=== PATIENT | male | born 1965 | race Caucasian/White ===

== ENCOUNTER 2017-07-23 20:32 | Emergency (ER) | payer MEDICARE, MEDICAID ==
[~2017-07-23 20:32] MED LIST: ROCURONIUM BROMIDE INJ 50 MG/5 ML VIAL IV ONE
[2017-07-23] MEDS ORDERED: ACETAMINOPHEN 650 MG SUPP.RECT PR ONE ×2 (20:50→20:52)
[2017-07-23] MEDS ORDERED: VANCOMYCIN HCL INJ 1000 MG VIAL ONE (20:53)
[2017-07-23] MEDS ORDERED: ACETAMINOPHEN 325 MG SUPP.RECT PR ONE (20:53)
[2017-07-23] MEDS ORDERED: CEFTRIAXONE 2 GM/D5W RTU 2 GM/50 ML RTUPB IV ONE ×2 (20:54→21:11)
[2017-07-23] MEDS ORDERED: LIDOCAINE 1% INJ-PF (10 MG/ML) 30 ML SDV ONE (21:00)
[2017-07-23 21:01] LABS: ARTERIAL BLOOD BASE EXCESS -10.8 mmol/L; ARTERIAL BLOOD O2 SATURATION 98.1 % (94-98)
[2017-07-23] MEDS ORDERED: DEXTROSE 5%-LACTATED RINGERS 1,000 ML IV ONE (21:10)
[2017-07-23] MEDS ORDERED: VANCOMYCIN HCL INJ 1000 MG VIAL IV ONE (21:11)
[2017-07-23] MEDS ORDERED: CLINDAMYCIN 600 MG/D5W RTU 600 MG/50 ML RTUPB IV ONE (21:12)
[2017-07-23] MEDS: RINGERS SOLUTION,LACTATED 1,000 ML IV PRN ×2 (21:25→21:45)
[2017-07-23 21:41] LABS: PROTHROMBIN TIME 16.1 SEC (11.4-15.4)
[2017-07-23 21:46] LABS: ALANINE AMINOTRANSFERASE 132 U/L (21-72); ALBUMIN 3.7 g/dL (3.5-5.0); ALCOHOL < 10 mg/dL (NONE DETECTED); ALKALINE PHOSPHATASE 65 U/L (38-126); ASPARTATE AMINO TRANSFERASE 668 U/L (17-59); BILIRUBIN,TOTAL 1.2 mg/dL (0.2-1.3); BLOOD UREA NITROGEN 34 mg/dL (7-20); CALCIUM 8.3 mg/dL (8.4-10.2); CARBON DIOXIDE 13 mmol/L (22-30); CHLORIDE 102 mmol/L (98-107); GLUCOSE 133 mg/dL (75-110); TOTAL PROTEIN 6.5 g/dL (6.3-8.2)
[2017-07-23 21:52] LABS: SODIUM 136.1 mmol/L (137-145)
[2017-07-23 21:54] LABS: ABSOLUTE LYMPHOCYTES (AUTO) 0.9 10^3/uL (0.5-4.7); ABSOLUTE MONOCYTES (AUTO) 1.3 10^3/uL (0.1-1.4); ANION GAP 21 (5-19); BASOPHILS % (AUTO) 0.2 % (0-2); EOSINOPHILS % (AUTO) 0.2 % (0-6); HEMATOCRIT 37.9 % (37.9-51.0); HEMOGLOBIN 12.7 g/dL (13.5-17.0); HGB HCT DIFFERENCE 0.2; LYMPHOCYTES % (AUTO) 5.2 % (13-45); MEAN CORPUSCULAR HEMOGLOBIN 26.7 pg (27.0-33.4); MEAN CORPUSCULAR HGB CONC 33.5 g/dL (32.0-36.0); MEAN CORPUSCULAR VOLUME 80 fl (80-97); MONOCYTES % (AUTO) 7.7 % (3-13); RED BLOOD COUNT 4.75 10^6/uL (4.35-5.55); RED CELL DISTRIBUTION WIDTH 15.2 % (11.5-14.0); SEGMENTED NEUTROPHILS % (AUTO) 86.7 % (42-78); WHITE BLOOD COUNT 17.3 10^3/uL (4.0-10.5)
--- NOTE | 2017-07-23 21:56 | RADIOLOGY REPORT (SQ) ---
EXAM DESCRIPTION: CHEST SINGLE VIEW COMPLETED DATE/TIME: 07/23/2017 9:37 pm REASON FOR STUDY: sepsis COMPARISON: None. EXAM PARAMETERS: NUMBER OF VIEWS: One view. TECHNIQUE: Single frontal radiographic view of the chest acquired. RADIATION DOSE: NA LIMITATIONS: None. FINDINGS: LUNGS AND PLEURA: No consolidation, masses or pneumothorax. Probable small bilateral pleu ral effusion. MEDIASTINUM AND HILAR STRUCTURES: Stable. HEART AND VASCULAR STRUCTURES: Stable. BONES: No acute findings. HARDWARE: None in the chest. OTHER: No other significant finding. IMPRESSION: Probable small bilateral pleural effusion. TECHNICAL DOCUMENTATION: JOB ID: [id number]
[2017-07-23] MEDS ORDERED: NOREPINEPHRINE BITARTRATE INJ/PF 4 MG/4 ML SDV IV ONE (22:33)
[2017-07-23 22:47] LABS: CREATINE KINASE MB 90.8 ng/mL (<4.55)
--- NOTE | 2017-07-23 22:47 | RADIOLOGY REPORT (SQ) ---
EXAM DESCRIPTION: CT HEAD WITHOUT COMPLETED DATE/TIME: 07/23/2017 10:31 pm REASON FOR STUDY: altered mental status COMPARISON: 01/13/2014 TECHNIQUE: Axial images acquired through the brain without intravenous contrast. Images reviewed wi th bone, brain and subdural windows. Images stored on PACS. All CT scanners at this facility use dose modulation, iterative reconstruction, and/or weight based d osing when appropriate to reduce radiation dose to as low as reasonably achievable (ALARA). [facility]: Dose Right [facility]: CareDose [facility]: Dose Right [facility]: Teradose 4D [facility]: Smart [employer] RADIATION DOSE: Up-to-date CT equipment and radiation dose reduction techniques were employed. CTDIv ol: 64.6 mGy. DLP: 1163 mGy-cm. mGy. LIMITATIONS: None. FINDINGS: VENTRICLES: Normal size and contour. CEREBRUM: No masses. No hemorrhage. No midline shift. No evidence for acute infarction. Normal gra y/white matter differentiation. No areas of low density in the white matter. CEREBELLUM: No masses. No hemorrhage. No alteration of density. No evidence for acute infarction. EXTRAAXIAL SPACES: No fluid collections. No masses. ORBITS AND GLOBE: No intra- or extraconal masses. Normal contour of globe without masses. CALVARIUM: No fracture. PARANASAL SINUSES: No fluid or mucosal thickening. SOFT TISSUES: No mass or hematoma. OTHER: No other significant finding. IMPRESSION: No acute intracranial findings. EVIDENCE OF ACUTE STROKE: NO. COMMENT: Quality ID # 436: Final reports with documentation of one or more dose reduction techniques (e.g., Automated exposure control, adjustment of the mA and/or kV according to patient size, use of iterative reconstruction technique) TECHNICAL DOCUMENTATION: JOB ID: [id number] [employer]- All Rights Reserved
--- NOTE | 2017-07-23 22:51 | RADIOLOGY REPORT (SQ) ---
EXAM DESCRIPTION: CT ABD/PELVIS NO ORAL OR IV COMPLETED DATE/TIME: 07/23/2017 10:31 pm REASON FOR STUDY: fever, sepsis suspected, acute renal failure COMPARISON: None. TECHNIQUE: CT scan of the abdomen and pelvis performed without intravenous or oral contrast. Images reviewed with lung, soft tissue, and bone windows. Reconstructed coronal and sagittal MPR images revi ewed. All images stored on PACS. All CT scanners at this facility use dose modulation, iterative reconstruction, and/or weight based d osing when appropriate to reduce radiation dose to as low as reasonably achievable (ALARA). [facility]: Dose Right [facility]: CareDose [facility]: Dose Right [facility]: Teradose 4D [facility]: [employer] RADIATION DOSE: Up-to-date CT equipment and radiation dose reduction techniques were employed. CTDIv ol: 20.2 mGy. DLP: 1191 mGy-cm.mGy. LIMITATIONS: None. FINDINGS: LOWER CHEST: Mild basilar subsegmental atelectasis. NON-CONTRASTED LIVER, SPLEEN, ADRENALS: Evaluation limited by lack of IV contrast. No identified sign ificant masses. PANCREAS: No masses. No peripancreatic inflammatory changes. GALLBLADDER: No identified stones by CT criteria. No inflammatory changes to suggest cholecystitis. RIGHT KIDNEY AND URETER: No suspicious masses. Assessment limited by lack of IV contrast. No signif icant calcifications. No hydronephrosis or hydroureter. LEFT KIDNEY AND URETER: No suspicious masses. Assessment limited by lack of IV contrast. No signifi cant calcifications. No hydronephrosis or hydroureter. AORTA AND RETROPERITONEUM: No aneurysm. No retroperitoneal masses or adenopathy. BOWEL AND PERITONEAL CAVITY: No obvious masses or inflammatory changes. No free fluid. APPENDIX: Normal. PELVIS, BLADDER, AND ABDOMINAL WALL:No abnormal masses. No free fluid. Bladder contains a Salgado asael ter. BONES: No significant findings. OTHER: No other significant finding. IMPRESSION: NO ACUTE PROCESS IN THE ABDOMEN OR PELVIS. Mild basilar subsegmental atelectasis. COMMENT: Quality ID # 436: Final reports with documentation of one or more dose reduction techniques (e.g., Automated exposure control, adjustment of the mA and/or kV according to patient size, use of iterative reconstruction technique) TECHNICAL DOCUMENTATION: JOB ID: [id number]- All Rights Reserved
[2017-07-23 23:09] LABS: TROPONIN I 0.059 ng/mL
[2017-07-23] MEDS ORDERED: KETAMINE HCL INJ 500 MG/10 ML VIAL ONE (23:14)
--- NOTE | 2017-07-23 23:43 | ER Document Report ---
ED General - General Chief Complaint: Altered Mental Status Stated Complaint: ALTERED MENTAL STATUS Time Seen by Provider: 07/23/17 21:08 Mode of Arrival: Medic Information source: Patient, Emergency Med Personnel Notes: This is a 51-year-old man with a history of chronic back pain, hypertension, anxiety and depression. The patient reportedly lives alone. His neighbors apparently checked in on him and found him unresponsive on the couch. EMS was called to the house and the patient was brought into the emergency room. Medications: Doxepin 6 mg daily Quetiapine 400 mg daily alprazolam aspirin metoprolol 50 mg BID Itraconazole Movantik IsAtorvastatin 20 mg daily PatientOxycodone pronounced the woman Amlodipine 5 mg daily Nexium Morphine Lisinopril 20 mg daily TRAVEL OUTSIDE OF THE [place] IN LAST 30 DAYS: No - HPI Onset: Other - Patient not seen for the past few days Associated symptoms: Chills, Fever Exacerbated by: Denies Relieved by: Denies Similar symptoms previously: No Recently seen / treated by doctor: No - Related Data Allergies/Adverse Reactions: No Known Allergies Allergy (Verified 07/23/17 23:45) Past Medical History - General Information source: Emergency Med Personnel, [facility] Records - Social History Smoking Status: Current Every Day Smoker Cigarette use (# per day): Yes - Unknown Chew tobacco use (# tins/day): No Smoking Education Provided: No Frequency of alcohol use: None Drug Abuse: None Lives with: Alone Family History: None Patient has suicidal ideation: No Patient has homicidal ideation: No - Past Medical History Cardiac Medical History: Reports: Hx Hypertension Pulmonary Medical History: Reports: None EENT Medical History: Reports: None Neurological Medical History: Reports: None Endocrine Medical History: Reports: None Renal/ Medical History: Reports: None Malignancy Medical History: Reports None GI Medical History: Reports: None Musculoskeltal Medical History: Reports Other - Chronic low back pain Skin Medical History: Reports None Psychiatric Medical History: Reports: Hx Bipolar Disorder, Hx Schizophrenia Traumatic Medical History: Reports: None Infectious Medical History: Reports: None Past Surgical History: Reports: Hx Orthopedic Surgery - Immunizations Hx Diphtheria, Pertussis, Tetanus Vaccination: Yes Review of Systems - Review of Systems Constitutional: Chills, Fever EENT: No symptoms reported Cardiovascular: No symptoms reported Respiratory: No symptoms reported Gastrointestinal: Diarrhea Genitourinary: No symptoms reported Male Genitourinary: No symptoms reported Musculoskeletal: No symptoms reported Skin: See HPI Hematologic/Lymphatic: No symptoms reported Neurological/Psychological: See HPI Physical Exam - Vital signs Vitals: Resp Pulse Ox 34 H 99 07/23/17 20:36 07/23/17 20:36 Notes: Physical exam: GENERAL: This is a 51-year-old man who is lethargic but does respond to his name and can answer simple questions. He appears very weak and dehydrated. His temperature is 103 rectally. He is tachycardic with a heart rate of 120. He is tachypneic with a respiratory rate of 40. HEAD: Atraumatic, normocephalic. EYES: Pupils equal round and reactive to light, extraocular movements intact, sclera anicteric, conjunctiva are normal. ENT: TMs normal, nares patent, oropharynx clear without exudates. Moist mucous membranes. NECK: Normal range of motion, supple without obvious mass or JVD. The patient denies headache at this time. He does have a fungal rash on the right side of the neck extending over the right clavicle. LUNGS: Tachypnea. Breath sounds clear to auscultation bilaterally and equal. No wheezes rales or rhonchi. HEART: Tachycardia without murmurs, rubs or gallops. ABDOMEN: Soft, normoactive bowel sounds. No tenderness to palpation. No guarding, no rebound. No masses appreciated. EXTREMITIES: Normal range of motion, no pitting or edema. The patient has a pressure sore over the extensor surface of the right elbow. He has an area of purpura and ecchymoses over the right thigh laterally which is approximately 8 cm x 10 cm. The lesion looks purplish in the center with red extending around it. There is no fluctuance, induration. Rectal exam: Liquid stool sent for study. Patient's temperature is 103. NEUROLOGICAL: He is lethargic, he denies headache, he can answer simple questions, he appears very weak, no obvious focal lesions noted. SKIN: Warm, Dry, lesions noted under extremity exams. Course - Re-evaluation Re-evalutation: 07/23/17 23:43 Note: This is a 51-year-old man with a history of hypertension, chronic pain and an unspecified psychiatric illness who is brought in for an altered mental status and found to be febrile and septic. His white count is 17,000. He does have a lesion over the right thigh which is purpuric in nature. I did have the surgeon come down and open the lesion and inspected for any necrotic tissue: There was none. The patient was given IV vancomycin, IV ceftriaxone, IV clindamycin. Labs reveal that he is in acute rhabdomyolysis and has acute renal failure. Due to the fact we do not have renal coverage, I am looking to transfer. 07/24/17 01:40 Patient's problem list: 1. Sepsis: Fever 103, white blood count 17,000. Lactic acid 1.5. Patient received IV Ringer's lactate, now on a norepinephrine drip at 14 mg/min. IV antibiotics given as above. Current blood pressure is 97/64. Patient has 3 peripheral lines and a triple-lumen in the right femoral region with the red port and the white port being functional (the blue port will not flush). On skin exam, the patient did have pressure ulcer to the right elbow. He did have a lesion to the lateral aspect of the right thigh which was approximately 8 x 10 cm and erythematous. It is not clear if this is the source of infection. The wound was opened up in the center by the surgeon and there was no necrotic tissue identified. Chest x-ray does show possible early infiltrates. CT of the head and abdomen showed no acute pathology. I did try to do a spinal tap at the bedside but was unsuccessful (patient does have tight spaces with a fair amount of arthritis in the lumbar region). 2. Acute renal failure secondary to rhabdomyolysis: Salgado has been placed. Patient not yet making much urine. After 3 L of Ringer's lactate, patient is now getting some bicarb. 3. Respiratory status: Patient is on 50% Venturi mask. At this time his oxygen saturation is 97%. His respiratory rate is between 12 and 15 (which has improved). We will continue to watch closely. 4. Current drips: Ringer's lactate, bicarb drip, norepinephrine at 14 mics per minute. 07/24/17 02:26 Update: Patient on his fifth liter of IV fluids. He is starting to make urine. Blood pressure is 100/60. 07/24/17 04:05 Note: I was called to the room because the patient was developing some agitation and swelling around the right side of his neck. The patient did have what looked like a fungal infection in the crease of the neck over the clavicle (this is the reason why I initially decided to use the femoral access for central line as opposed to the internal jugular). On reassessment of the patient, the patient clearly has increased swelling and induration in the submandibular region predominantly on the right side of the neck. There does not appear to be any fluctuance. The patient's neck tissues were soft earlier. In any event, the decision was made to intubate the patient because of the possibility of airway compromise. The patient was given IV ketamine 100 mg for induction and then rocuronium. Patient was intubated with the use of glidoscope. Will obtain neck CT. - Vital Signs Vital signs: Temp Pulse Resp BP Pulse Ox 97.5 F 14 93/56 L 97 07/24/17 04:00 07/24/17 04:03 07/24/17 04:03 07/24/17 04:03 - Laboratory Result Diagrams: 07/23/17 20:38 07/23/17 20:38 Laboratory results interpreted by me: 07/23/17 07/23/17 07/23/17 20:38 20:38 20:38 WBC 17.3 H Hgb 12.7 L MCH 26.7 L RDW 15.2 H Seg Neutrophils % 86.7 H Lymphocytes % 5.2 L Absolute Neutrophils 15.0 H PT 16.1 H Carbonic Acid ABG pH ABG pCO2 ABG pO2 ABG HCO3 ABG Total CO2 ABG O2 Saturation Sodium 136.1 L Carbon Dioxide 13 L Anion Gap 21 H BUN 34 H Creatinine 8.90 H Est GFR ( Amer) 8 L Est GFR (Non-Af Amer) 6 L Glucose 133 H Calcium 8.3 L Direct Bilirubin 1.0 H AST 668 H ALT 132 H Creatine Kinase CK-MB (CK-2) Urine Protein Urine Glucose (UA) Urine Ketones Urine Blood Ur Leukocyte Esterase Salicylates < 1.0 L Acetaminophen < 10 L 07/23/17 07/23/17 07/23/17 20:38 20:38 20:47 WBC Hgb MCH RDW Seg Neutrophils % Lymphocytes % Absolute Neutrophils PT Carbonic Acid 0.78 L ABG pH 7.33 L ABG pCO2 25.8 L ABG pO2 115.7 H ABG HCO3 13.4 L ABG Total CO2 14.2 L ABG O2 Saturation 98.1 H Sodium Carbon Dioxide Anion Gap BUN Creatinine Est GFR ( Amer) Est GFR (Non-Af Amer) Glucose Calcium Direct Bilirubin AST ALT Creatine Kinase 85631 H CK-MB (CK-2) 90.80 H Urine Protein Urine Glucose (UA) Urine Ketones Urine Blood Ur Leukocyte Esterase Salicylates Acetaminophen 07/23/17 23:55 WBC Hgb MCH RDW Seg Neutrophils % Lymphocytes % Absolute Neutrophils PT Carbonic Acid ABG pH ABG pCO2 ABG pO2 ABG HCO3 ABG Total CO2 ABG O2 Saturation Sodium Carbon Dioxide Anion Gap BUN Creatinine Est GFR ( Amer) Est GFR (Non-Af Amer) Glucose Calcium Direct Bilirubin AST ALT Creatine Kinase CK-MB (CK-2) Urine Protein 100 H Urine Glucose (UA) 50 H Urine Ketones TRACE H Urine Blood LARGE H Ur Leukocyte Esterase TRACE H Salicylates Acetaminophen - Diagnostic Test Radiology reviewed: Image reviewed, Reports reviewed - CT of the head shows no acute intra-cranial process. CT of the abdomen shows no acute intra-abdominal process. - EKG Interpretation by Vt Rate: Tachycardia - EKG shows sinus tachycardia with a ventricular rate of 115, no acute ST-T wave changes Procedures - Central Line Right Femoral Time completed: 23:00 Consent obtained: No - Procedure done emergently Central line pre-insertion: Chloraprep applied Central line lumen type: Triple Anesthetic type: 1% Lidocaine mL's of anesthesia: 5 Ultrasound guided: Yes CM at insertion site: 21 Line secured with sutures: Yes Central line post-insertion: Biopatch applied, Sutured, Sterile dressing applied , Other - Blood returned from the red and the white lumen. Was unable to return blood from the blue lumen (this was taped off). Number of attempts: 1 Complications: No - Intubation Orotracheal Time of Intubation: 03:30 Airway evaluation: Large tongue, Neck immobility, Obese, Poss. upper airway obst. Mallampati Classification: Class 1 Medications: Ketamine Intubation method: Orotracheal Equipment used: Glidescope ETT size: 7.5 ETT secured at: Lips ETT secured at (cm): 23 Breath Sounds after Intubation: Equal, Other - The patient was initially at 25 cm and appeared to be just above the right mainstem bronchus. The tube was moved back to centimeters and appears in good position. End tidal CO2 confirmed: Yes Post Intubation Xray: Yes Intubation Complications: No complications - Lumbar Puncture Lumbar puncture Time completed: 23:30 Consent obtained: No Lumbar puncture pre-procedure: Chloraprep applied Patient position: Lying Needle size: 22 Anesthetic type: 1% Lidocaine mL's of anesthetic: 5 Notes: 07/24/17 01:50 Unable to obtain due to tight spaces with arthritis in the lower lumbar area. Procedure aborted after several attempts. Critical Care Note - Critical Care Note Total time excluding time spent on procedures (mins): 180 Discharge - Discharge Clinical Impression: Septic shock, Acute renal failure, Rhabdomyolysis, Right neck swelling Condition: Critical Disposition: [facility] Referrals: GRAHAM GARCIA MD [Primary Care Provider] - Follow up as needed
[2017-07-23] MEDS ORDERED: KETAMINE HCL INJ 500 MG/10 ML VIAL IV ONE (23:52)
[2017-07-24] MEDS ORDERED: DEXTROSE 5%-WATER 1000 ML 1,000 ML IV ONE (00:13)
[2017-07-24] MEDS ORDERED: SODIUM BICARBONATE 8.4% INJ 50 MEQ/50 ML DISP.SYRIN ONE (00:19)
[2017-07-24] MEDS: DEXTROSE 5%-WATER 1000 ML 1,000 ML with SODIUM BICARBONATE 150 MEQ IV PRN ×4 (00:30→00:47)
[2017-07-24 00:33] LABS: AMORPHOUS SEDIMENT,URINE TRACE /HPF; APPEARANCE,URINE CLOUDY; BILIRUBIN,URINE NEGATIVE (NEGATIVE); GLUCOSE, URINE 50 mg/dL (NEGATIVE); KETONES,URINE TRACE mg/dL (NEGATIVE); LEUKOCYTE ESTERASE,URINE TRACE (NEGATIVE); NITRITE,URINE NEGATIVE (NEGATIVE); PROTEIN,URINE 100 mg/dL (NEGATIVE); URINE SPECIFIC GRAVITY 1.018; UROBILINOGEN,URINE NEGATIVE mg/dL (<2.0)
[2017-07-24] MEDS ORDERED: RINGERS SOLUTION,LACTATED 1,000 ML IV ONE (01:25)
[2017-07-24 01:37] LABS: URINE BARBITURATES SCREEN NEGATIVE; URINE METHADONE SCREEN NEGATIVE; URINE OPIATES LOW UNCONFIRMED POSITIVE; URINE PHENCYCLIDINE SCREEN NEGATIVE
[2017-07-24] MEDS ORDERED: ETOMIDATE INJ/PF 20 MG/10 ML SDV IV ONE (03:07)
[2017-07-24] MEDS ORDERED: KETAMINE HCL INJ 500 MG/10 ML VIAL ONE ×2 (03:09→03:24)
[2017-07-24] MEDS ORDERED: PROPOFOL 100 ML IV ONE (03:13)
[2017-07-24] MEDS ORDERED: NOREPINEPHRINE BITARTRATE INJ/PF 4 MG/4 ML SDV IV ONE (03:18)
[2017-07-24] MEDS ORDERED: KETAMINE HCL INJ 500 MG/10 ML VIAL IV ONE (03:43)
--- NOTE | 2017-07-24 04:15 | RADIOLOGY REPORT (SQ) ---
EXAM DESCRIPTION: CT SOFT TISSUE NECK WITHOUT COMPLETED DATE/TIME: 07/24/2017 4:01 am REASON FOR STUDY: right neck swelling, renal failure COMPARISON: None. TECHNIQUE: Noncontrast scanning from skull base through lung apices with review of bone, soft tissue and lung windows. Reconstructed coronal and sagittal MPR images reviewed. All images stored on PAC S. All CT scanners at this facility use dose modulation, iterative reconstruction, and/or weight based d osing when appropriate to reduce radiation dose to as low as reasonably achievable (ALARA). [facility]: Dose Right [facility]: CareDose [facility]: Dose Right [facility]: Teradose 4D [facility]: [email or web address] RADIATION DOSE: Up-to-date CT equipment and radiation dose reduction techniques were employed. CTDIv ol: 16.6 mGy. DLP: 557 mGy-cm. mGy. LIMITATIONS: None. FINDINGS: SKULL BASE: Intact. MAJOR SALIVARY GLANDS: There is edema of the submandibular gland on the right. No identified stones. Adjacent subcutaneous soft tissue edema both deep and superficial to the fascia. LYMPHADENOPATHY: No adenopathy. MUCOSAL MASSES OR ASYMMETRY: No mucosal masses or asymmetry. LARYNX/CORDS: No abnormal findings. LUNG APICES: Parenchymal opacities in the lung apices. BONES: Intact. THYROID: Normal size. No masses. PARANASAL SINUSES: Clear. OTHER: The nasogastric tube is coiled in that the hypopharynx. ETT in expected location. IMPRESSION: Soft tissue edema without focal mass or abscess of the right submandibular gland. Adjac ent subcutaneous soft tissue edema deep and superficial to the fascia. NG tube is coiled in the hypopharynx prior to traversing distally into the esophagus. TECHNICAL DOCUMENTATION: JOB ID: [id number] Quality ID # [id number]: Final reports with documentation of one or more dose reduction techniques (e.g., Au tomated exposure control, adjustment of the mA and/or kV according to patient size, use of iterative reconstruction technique) 2010 [employer]- All Rights Reserved
--- NOTE | 2017-07-24 04:16 | RADIOLOGY REPORT (SQ) ---
EXAM DESCRIPTION: CHEST SINGLE VIEW COMPLETED DATE/TIME: 07/24/2017 4:05 am REASON FOR STUDY: intubated COMPARISON: 07/23/2017 EXAM PARAMETERS: NUMBER OF VIEWS: One view. TECHNIQUE: Single frontal radiographic view of the chest acquired. RADIATION DOSE: NA LIMITATIONS: None. FINDINGS: LUNGS AND PLEURA: Minimal parenchymal opacities in the apices. No pneumothorax. MEDIASTINUM AND HILAR STRUCTURES: No masses. Contour normal. HEART AND VASCULAR STRUCTURES: Heart normal in size. Normal vasculature. BONES: No acute findings. HARDWARE: ET tube in appropriate location. Nasogastric tube tip in the stomach. OTHER: No other significant finding. IMPRESSION: Minimal parenchymal opacities in the apices. Support devices as visualized are in appropriate location. TECHNICAL DOCUMENTATION: JOB ID: [id number]
[2017-07-24] MEDS ORDERED: POTASSI CL 20 MEQ/50 ML RIDER 20 MEQ/50 ML RTUPB IV ONE (04:22)
[2017-07-24] MEDS ORDERED: DEXTROSE 5%-WATER 250 ML with NOREPINEPHRINE BITARTRATE 4 MG IV PRN ×2 (04:23)
[2017-07-24] MEDS ORDERED: ROCURONIUM BROMIDE INJ 50 MG/5 ML VIAL IV ONE (04:23)
[2017-07-24 04:46] VITALS: BP 143/86
--- NOTE | 2017-07-24 08:07 | EKG REPORT ---
SEVERITY:- BORDERLINE ECG - SINUS TACHYCARDIA BORDERLINE INFERIOR Q WAVES BORDERLINE PROLONGED QT INTERVAL : Confirmed by: Javi Argueta 24-Jul-2017 08:06:44
--- NOTE | 2017-07-24 12:18 | CONSULTATION REPORT E ---
Consultation Report NAME: RANDI BAEZA : 1965 AGE: 51Y DATE: 07/23/2017 TO: TEDDY SIMPSON M.D. FROM: CHRISTINA LOZANO M.D. Requesting Physician HISTORY OF PRESENT ILLNESS: This is a 51-year-old male patient for consultation from emergency room physician for evaluation of right side posterior aspect of the upper thigh and ecchymotic area to rule out abscess or necrotizing fascitis. This gentleman was found unconscious and brought by his neighbors with unresponsive status. After coming to the emergency room, he was resuscitated from tachypnea, respiratory distress and unconscious status and now he is responding, awake, moving, but not overly responsive. ER physician noted an ecchymotic area on the posterior aspect of the right thigh wanted to make sure there is not a necrosis, necrotizing soft tissue infection or fascitis. unable to obtain much history from him because he is not responsive verbally. PHYSICAL EXAMINATION: VITAL SIGNS: Exam mccurdy his temperature was 101 when he came in and now 99. Tachypneic up to 31 to 32 respiratory rate and hemodynamically stable. HEAD AND NECK: No lymphadenopathy, no masses. RESPIRATORY: Both lungs with good air entry. CARDIOVASCULAR: Both heart sounds are regular, no murmurs. ABDOMINAL: He has a very soft abdomen, nontender, no mass palpable. EXTREMITIES: Warm and perfused. Right lower extremity posterior aspect of the mid upper thigh there is about a 5 to 6 cm ecchymotic area with no fluctuance noted and no erythema noted. IMPRESSION: Overall exam likely to be clinically looking and there does not seem to be any abscess or increased cellulitis, even then area with 1% lidocaine given central part of the ecchymotic area explored with . There is no pus, no purulence. No necrosis of the soft tissue, very viable soft tissue underneath. IMPRESSION: Overall there is no active infection in the lower extremities. No necrotic area. No soft tissue infection. PLAN: No surgical intervention needed at this point. Dry dressing for that area. Monitor the area and then we will continue the medical management unresponsiveness, tachypnea, possible pneumonia and other medical issues. Consult as needed. DICTATING PHYSICIAN: TEDDY SIMPSON M.D. [id number] PHY#: [id number] ID: [id number] JOB#: [id number] ACCT: [id number] cc:TEDDY SIMPSON M.D. >
== END 2017-07-24 04:57 | disposition short-term general hospital (02) ==
LOC: ER 20:32
PROC: 00JU3ZZ Inspection of Spinal Canal, Percutaneous Approach (ICD-10-PCS; principal; 2017-07-23)
PROC: 0BH17EZ Insertion of Endotracheal Airway into Trachea, Via Natural or Artificial Opening (ICD-10-PCS; 2017-07-23)
PROC: 06HM33Z Insertion of Infusion Device into Right Femoral Vein, Percutaneous Approach (ICD-10-PCS; 2017-07-23)
DX: R65.21 Severe sepsis with septic shock (principal); A41.9 Sepsis, unspecified organism; N17.9 Acute kidney failure, unspecified; M62.82 Rhabdomyolysis; R41.82 Altered mental status, unspecified; M54.9 Dorsalgia, unspecified; G89.29 Other chronic pain; I10 Essential (primary) hypertension; F41.9 Anxiety disorder, unspecified; F32.9 Major depressive disorder, single episode, unspecified; F17.200 Nicotine dependence, unspecified, uncomplicated; R22.1 Localized swelling, mass and lump, neck
CPT/HCPCS: 93005; 36415; 87040; 87086; 82553; 80307 ×4; 82803; 82550; 85025; 85610; 87077; 80053; 81001; 84484; 87186; 87493; 83605; 71010 ×2; 70450; 70490; 74176; 93010; 62270; 31500; 36556; C1751; A9270; J3490 ×7; J2704; J3480; J7060 ×2; J7120 ×2; J3370; J0696

== ENCOUNTER 2017-08-21 11:35 | Emergency (ER) | payer MEDICARE, MEDICAID ==
--- NOTE | 2017-08-21 13:54 | ER Document Report ---
ED Skin Rash/Insect Bite/Abscs - General Chief Complaint: Skin Sore(s) Stated Complaint: FOOT PAIN Time Seen by Provider: 08/21/17 13:45 Notes: Patient is here to be evaluated for decubitus pressure sores. He says that the sores have increased in drainage as well as odor and he is now running a fever. His pressure sores developed after he took an overdose a month or more ago and apparently laid on a floor for 2 days before he was found. He developed the pressure sores on his buttocks and also on his feet and on the right elbow. He was seen here and had kidney failure and was sent to [facility] where he was in the hospital for a couple of weeks and went home a couple weeks ago. He has a home health nurse visiting 3 times a week and his mother changes the bandages on the other days of the week. Patient has had some diarrhea over the past 5 days, no nausea or vomiting. Fever for the last 3 days. Patient is not on any current antibiotics. TRAVEL OUTSIDE OF THE [place] IN LAST 30 DAYS: No - Related Data Allergies/Adverse Reactions: No Known Allergies Allergy (Verified 08/21/17 12:00) Past Medical History - Social History Smoking Status: Never Smoker Chew tobacco use (# tins/day): No Frequency of alcohol use: None Drug Abuse: None Family History: None Patient has suicidal ideation: No Patient has homicidal ideation: No - Past Medical History Cardiac Medical History: Reports: Hx Hypertension Neurological Medical History: Reports: None Skin Medical History: Reports Other - Decubitus ulcers of both buttocks. Also on the right elbow and both feet Psychiatric Medical History: Reports: Hx Bipolar Disorder, Hx Schizophrenia Past Surgical History: Reports: Hx Orthopedic Surgery - Immunizations Hx Diphtheria, Pertussis, Tetanus Vaccination: Yes Review of Systems - Review of Systems Notes: REVIEW OF SYSTEMS: CONSTITUTIONAL : Denies fever. EENT: Denies eye, ear, nose or mouth or throat pain or other symptoms. CARDIOVASCULAR: Denies chest pain. RESPIRATORY: Denies cough, chest congestion, or shortness of breath. GASTROINTESTINAL: Denies abdominal pain or nausea, vomiting, or diarrhea. GENITOURINARY: Denies difficulty or painful urinating, urinary frequency, blood in urine. MUSCULOSKELETAL: Denies back or neck pain. Denies joint pain or swelling. See HPI. SKIN: Decubitus lesions on both buttocks. Also on left foot heel and right foot side. NEUROLOGICAL: Denies LOC or altered mental status. Denies headache. Denies sensory loss or motor deficits. ALL OTHER SYSTEMS REVIEWED AND NEGATIVE. Physical Exam - Vital signs Vitals: Temp Pulse Resp BP Pulse Ox 98.5 F 110 H 18 110/72 100 08/21/17 11:56 08/21/17 11:56 08/21/17 11:56 08/21/17 11:56 08/21/17 11:56 Interpretation: Tachycardic - Mild - Notes Notes: PHYSICAL EXAMINATION: GENERAL: Well-appearing, in no acute distress. HEAD: Atraumatic, normocephalic. EYES: Pupils equal round and reactive to light, extraocular movements intact. ENT: oropharynx clear without exudates. Moist mucous membranes. NECK: Normal range of motion, supple. LUNGS: Breath sounds clear and equal bilaterally. HEART: Regular rate and rhythm without murmurs. ABDOMEN: Soft, nontender. No guarding or rebound. BACK: No tenderness throughout entire back. EXTREMITIES: Normal range of motion without pain. Dark-looking eschar formation over the olecranon region of the right forearm. No infection noted in that area. He has 2 very deep infected looking decubitus ulcers 1 in each of his buttocks. Couple of skin lesions on his feet, as well. NEUROLOGICAL: Normal speech, normal gait. Normal sensory, motor, and reflex exams. Awake, alert, and oriented x3. Cranial nerves normal. PSYCH: Normal mood, normal affect. SKIN: Warm, dry, no rashes. Course - Re-evaluation Re-evalutation: 08/21/17 19:35 Dr. Holbrook arrange for this patient to have an appointment to be seen in the wound care clinic on Monday morning at 8 AM. 08/21/17 19:44 Dr. Holbrook debrided both of the hip/buttock wounds and rinse them out and repacked him. - Vital Signs Vital signs: Temp Pulse Resp BP Pulse Ox 98.9 F 89 27 H 112/78 98 08/21/17 17:00 08/21/17 13:38 08/21/17 17:00 08/21/17 17:00 08/21/17 17:00 - Laboratory Result Diagrams: 08/21/17 14:35 08/21/17 14:35 Laboratory results interpreted by me: 08/21/17 08/21/17 14:35 14:35 WBC 14.5 H RBC 3.78 L Hgb 10.0 L Hct 30.0 L MCV 79 L MCH 26.5 L RDW 15.0 H Seg Neuts % (Manual) 90 H Band Neutrophils % 2 L Lymphocytes % (Manual) 3 L Abs Neuts (Manual) 13.3 H Abs Lymphs (Manual) 0.4 L Sodium 134.2 L Carbon Dioxide 19 L BUN 35 H Creatinine 2.44 H Est GFR ( Amer) 34 L Est GFR (Non-Af Amer) 28 L Glucose 113 H Direct Bilirubin 0.[address] Holbrook aware of patient's white count and differential. He feels that he has cleaned up the wounds and remove the source of the leukocytosis and the patient does not require any antibiotic treatment Discharge - Discharge Clinical Impression: Decubitus skin ulcer Condition: Stable Disposition: HOME, SELF-CARE Additional Instructions: Decubitus Ulcer A decubitus ulcer develops where there's pressure on the skin. It's a common problem in patients who can't move easily. The healing time depends on the size and depth of the ulcer, and on whether further damage can be avoided. If there are signs of infection, an antibiotic is prescribed. The ulcer should be cleaned and bandaged at least daily. The doctor may recommend special treatments such as whirlpool. Further pressure (such as lying on the ulcer area) should be absolutely avoided. Frequent changes of position will avoid further ulcers. To help the ulcer heal, pay close attention to general health. Diabetics should keep the blood sugar as normal as possible. Edema can be reduced with medication. Low blood oxygen can be improved with medication to improve breathing or an oxygen tank at home. Review the treatment of all medical problems with the doctor. Infection can spread from the ulcer. If there's fever, chilling, worsening pain, or increasing swelling in the area, call the doctor or return immediately. Continue to care for your wounds as you have been doing in the past and in whatever way Dr. Holbrook advised you to do. Your wounds have been cleaned and debrided by Dr. Holbrook. He has made an appointment for you to be seen at the wound clinic at 8:00 AM on this coming August 25. FOLLOW-UP CARE: If you have been referred to a physician for follow-up care, call the physician s office for an appointment as you were instructed or within the next two days. If you experience worsening or a significant change in your symptoms, notify the physician immediately or return to the Emergency Department at any time for re-evaluation. Referrals: Wound Care [Provider Group] - 08/25/17 8:00 am
[2017-08-21 14:54] LABS: MEAN CORPUSCULAR HEMOGLOBIN 26.5 pg (27.0-33.4); MEAN CORPUSCULAR HGB CONC 33.5 g/dL (32.0-36.0); MEAN CORPUSCULAR VOLUME 79 fl (80-97); RED BLOOD COUNT 3.78 10^6/uL (4.35-5.55); WHITE BLOOD COUNT 14.5 10^3/uL (4.0-10.5)
[2017-08-21 15:13] LABS: BAND NEUTROPHILS % (MANUAL) 2 % (3-5); BASOPHILS % (MANUAL) 0 % (0-2); EOSINOPHILS % (MANUAL) 0 % (0-6); LYMPHOCYTES % (MANUAL) 3 % (13-45); TOTAL CELLS COUNTED 100
[2017-08-21 15:14] LABS: ANISOCYTOSIS SLIGHT; HYPOCHROMASIA SLIGHT; MICROCYTOSIS SLIGHT; OVALOCYTES SLIGHT; POIKILOCYTOSIS SLIGHT; POLYCHROMASIA SLIGHT; TOXIC GRANULATION 1+
[2017-08-21 15:15] LABS: ALANINE AMINOTRANSFERASE 45 U/L (21-72); ALKALINE PHOSPHATASE 125 U/L (38-126); ANION GAP 17 (5-19); ASPARTATE AMINO TRANSFERASE 23 U/L (17-59); BILIRUBIN,DIRECT 0.7 mg/dL (0.0-0.4); BLOOD UREA NITROGEN 35 mg/dL (7-20); CALCIUM 9.7 mg/dL (8.4-10.2); CARBON DIOXIDE 19 mmol/L (22-30); CHLORIDE 98 mmol/L (98-107); CREATININE RESULT 2.44 mg/dL (0.52-1.25); GLUCOSE 113 mg/dL (75-110); SODIUM 134.2 mmol/L (137-145); TOTAL PROTEIN 7.3 g/dL (6.3-8.2)
[2017-08-21] MEDS ORDERED: LIDOCAINE 1% INJ-PF (10 MG/ML) 30 ML SDV ONE (15:33)
[2017-08-21] MEDS ORDERED: PROMETHAZINE HCL 25 MG TABLET PO ONE (15:40)
[2017-08-21] MEDS ORDERED: OXYCODONE-ACETAMINOPHEN 5-325 MG TABLET PO ONE (15:40)
--- NOTE | 2017-08-21 16:56 | Operative Report ---
Operative Report DATE OF SURGERY: 08/21/17 PREOPERATIVE DIAGNOSIS: Bilateral stage III ischial pressure decubiti POSTOPERATIVE DIAGNOSIS: Same OPERATION: Excisional debridement of devitalized skin, subcutaneous fat, and fibrofatty deep tissue with Hayes scissors and pickups: Total volume right hip 25 cm I: Total volume left hip 15 cm SURGEON: NENA HOLBROOK ANESTHESIA: Local TISSUE REMOVED OR ALTERED: Devitalized skin and fat COMPLICATIONS: None ESTIMATED BLOOD LOSS: Scant INTRAOPERATIVE FINDINGS: See below PROCEDURE: The patient was evaluated in the emergency department by Dr. Holbrook. Patient has history of chronic bilateral ischial decubiti, stage III, undergoing wet-to- dry dressing changes on an outpatient basis by home health services. Sent to the emergency department because wounds were deteriorating. Surgery was consulted and recommendation was made to excisionally debride devitalized tissue from both wounds, and start the patient on dressing changes and eventually VAC therapy. Consent was provided, and timeout taken. The patient was placed in supine left lateral decubitus position right side up. The right hip and upper thigh was exposed. The stage III decubitus had a rim of healing epithelium, and minimal granulation tissue. In the center of this 10 by 12 cm wound was a section of full-thickness skin and subcutaneous tissue which is completely necrotic, approximately 6 x 6 cm. Skin was prepped and draped in sterile fashion Betadine and anesthetized with 1% lidocaine plain. Using jmups and Hayes scissors, dissection of skin was completely debrided. We then used the same instruments to debride several additional sections of subcutaneous tissue, with a total volume approximately 25 cm. We got down to glistening, pink deep subcutaneous tissue. There was some bleeding in areas. No significant undermining to this wound. It was irrigated several times with saline and then Betadine, saline again scrub with chlorhexidine scrub brush and then packed with Betadine soaked portion of Curlex. We will by fours and micropore tape applied Patient tolerated this portion procedure well. Is then rotated in the right side down left side up position. The left stage III ischial wound, much smaller approximately 6 x 10 cm, with a identical pattern of consisting of a full-thickness necrotic segment in the center, approximately 4 x 3 cm. Tissue was then prepped and draped with Betadine and anesthetized with 01% plain lidocaine. Using pickups and Eulalio the island of skin and subcutaneous tissue was excised sharply. We then sharply debrided additional chunks of subcutaneous tissue which was nonviable until he got down to some decent readings deep subcutaneous tissue which was pink. Patient did have several areas of granulation tissue. Again no undermining. This wound was irrigated several times washed with chlorhexidine, and act in a similar fashion into the right decubitus wound. Patient tolerated procedure well Plan: 1. I reviewed management with Dr. Mitchell in the emergency department. The patient has a leukocytosis, likely secondary to the necrotic tissue debrided today, I do not believe the patient is septic, and I believe we have now adequate source control in terms of devitalized skin and subcutaneous tissue. He may benefit from a short course of antibiotics, then stopping them. 2. I have spoken with the director of the advanced wound center here in [place]; we are exchanging demographic information; I recommended he go VAC therapy on both hips starting tomorrow. Patient states he is familiar with this as his had a VAC for an abdominal wound many years ago. 3. Patient can follow-up with the advanced wound center care providers hereafter.
[2017-08-21 17:11] VITALS: BP 112/78
== END 2017-08-21 17:11 | disposition home or self-care (01) ==
LOC: ER 11:35
DX: L89.329 Pressure ulcer of left buttock, unspecified stage (principal); L89.319 Pressure ulcer of right buttock, unspecified stage; L89.629 Pressure ulcer of left heel, unspecified stage; L89.899 Pressure ulcer of other site, unspecified stage; I10 Essential (primary) hypertension; R50.9 Fever, unspecified
CPT/HCPCS: 99283; 36415; 87040; 85025; 87077; 80053; J3490; A9270 ×2

== ENCOUNTER 2017-08-23 14:42 | Inpatient (IN) | payer MEDICARE, MEDICAID ==
[2017-08-23] MEDS ORDERED: KETOROLAC TROMETHAMINE 60 MG/2 ML SDV IV ONE (16:36)
--- NOTE | 2017-08-23 16:43 | ER Document Report ---
ED Wound - General Mode of Arrival: Ambulatory Information source: Patient TRAVEL OUTSIDE OF THE [place] IN LAST 30 DAYS: No - HPI Patient complains to provider of: Other - bilateral ulcers on the buttocks Occurred: Other - ulcers formed 5 weeks ago. <ELINA CAMPBELL - Last Filed: 08/23/17 19:31> <MARGA POSEY - Last Filed: 08/23/17 19:32> - General Chief Complaint: Wound Infection Stated Complaint: WOUND Time Seen by Provider: 08/23/17 16:07 Notes: Patient is a 52 year old male that presents to the emergency department complaining of worsening symptoms of bilateral buttock ulcers. Patient states that he developed the ulcers 5 weeks ago after he overdosed on Oxycotin and was found 2 days later. Patient states that he has an increase in discharge, pain, and a foul smell onset Monday. Patient also has had a fever of 102. Patient states that he has had vomiting and diarrhea that went a way two days ago. ( ELINA CAMPBELL) - Related Data Allergies/Adverse Reactions: No Known Allergies Allergy (Verified 08/21/17 12:00) Home Medications: Current Home Medications Alprazolam [Xanax] 1 mg PO Q8HP PRN 08/23/17 [History] Amlodipine Besylate 5 mg PO DAILY 08/23/17 [History] Atorvastatin Calcium [Lipitor 20 mg Tablet] 20 mg PO QHS 08/23/17 [History] Lisinopril 20 mg PO DAILY 08/23/17 [History] Metoprolol Tartrate [Lopressor 50 mg Tablet] 50 mg PO Q12H 08/23/17 [History] Oxycodone HCl [Oxy-Ir 5 mg Tablet] 15 mg PO Q4HP PRN 08/23/17 [History] Quetiapine Fumarate [Quetiapine Fumarate ER] 800 mg PO DAILY 08/23/17 [History] Past Medical History - General Information source: Patient - Social History Smoking Status: Never Smoker Cigarette use (# per day): No Chew tobacco use (# tins/day): No Smoking Education Provided: No Frequency of alcohol use: None Family History: None Patient has suicidal ideation: No Patient has homicidal ideation: No - Past Medical History Cardiac Medical History: Reports: Hx Hypertension Psychiatric Medical History: Reports: Hx Bipolar Disorder, Hx Schizophrenia Past Surgical History: Reports: Hx Orthopedic Surgery - Immunizations Hx Diphtheria, Pertussis, Tetanus Vaccination: Yes <ELINA CAMPBELL - Last Filed: 08/23/17 19:31> Review of Systems - Review of Systems Constitutional: See HPI, Fever EENT: No symptoms reported Cardiovascular: No symptoms reported Respiratory: No symptoms reported Gastrointestinal: See HPI, Diarrhea, Vomiting Genitourinary: No symptoms reported Male Genitourinary: No symptoms reported Musculoskeletal: No symptoms reported Skin: Other - ulcers on buttocks bilaterally Hematologic/Lymphatic: No symptoms reported Neurological/Psychological: No symptoms reported -: Yes All other systems reviewed and negative <ELINA CAMPBELL - Last Filed: 08/23/17 19:31> Physical Exam <ELINA CAMPBELL - Last Filed: 08/23/17 19:31> <DARRELLMILIMARGA - Last Filed: 08/23/17 19:32> - Vital signs Vitals: Temp Pulse Resp BP Pulse Ox 98.3 F 110 H 17 121/78 100 08/23/17 15:00 08/23/17 15:00 08/23/17 15:00 08/23/17 15:00 08/23/17 15:00 - Notes Notes: GENERAL: Alert, interacts well. No acute distress. HEAD: Normocephalic, atraumatic. EYES: Pupils equal, round, and reactive to light. Extraocular movements intact. ENT: Oral mucosa moist, tongue midline. NECK: Full range of motion. Supple. Trachea midline. LUNGS: Clear to auscultation bilaterally, no wheezes, rales, or rhonchi. No respiratory distress. HEART: Regular rate and rhythm. No murmurs, gallops, or rubs. ABDOMEN: Soft, non-tender. Non-distended. Bowel sounds present in all 4 quadrants. EXTREMITIES: Moves all 4 extremities spontaneously. No edema, radial and dorsalis pedis pulses 2/4 bilaterally. No cyanosis. NEUROLOGICAL: Alert and oriented x3. Normal speech. PSYCH: Normal affect, normal mood. SKIN: Ulcer on buttocks bilaterally. Ulcer on right buttocks: 10 cm long, 8 cm wide. Warmer than left buttocks ulcer. Less surrounding erythema. Tender to palpation inferiorly. Firm. Granulation tissue. Fat is exposed. Not probing to bone. Strong odor. Ulcer on left buttocks: Ulcer is 10 and a half cm long. More surrounding erythema. Not probing to bone. Granulation tissue. strong odor (ELINA CAMPBELL) Course - Laboratory Result Diagrams: 08/23/17 15:45 08/23/17 15:45 <ELINA CAMPBELL - Last Filed: 08/23/17 19:31> - Laboratory Result Diagrams: 08/23/17 15:45 08/23/17 15:45 <MARGA POSEY - Last Filed: 08/23/17 19:32> - Re-evaluation Re-evalutation: 08/23/17 18:27 CBC does not show any leukocytosis but there is anemia with hemoglobin 9.4, platelets are normal, CMP shows acute renal failure with a BUN of 33 and creatinine 1.96, CO2 is low at 19, patient will be hydrated, urinalysis unremarkable, blood cultures are pending, on review of records I did find a blood culture positive for gram-negative rods that was drawn on the when he was here previously. Patient was initially sent home after sharp debridement of the wound without IV antibiotics, given his fevers and the gram- negative bacteremia patient was discussed with Dr. Daniel who recommended admission to the hospitalist patient was then discussed with the hospitalist who agreed to admit the patient to his service for IV antibiotics, recommended using Zosyn. No evidence of sepsis at this time. (MARGA POSEY) - Vital Signs Vital signs: Temp Pulse Resp BP Pulse Ox 98.3 F 110 H 17 121/78 100 08/23/17 15:00 08/23/17 15:00 08/23/17 15:00 08/23/17 15:00 08/23/17 15:00 - Laboratory Laboratory results interpreted by me: 08/23/17 08/23/17 08/23/17 15:45 15:45 17:00 RBC 3.52 L Hgb 9.4 L Hct 27.8 L MCV 79 L MCH 26.7 L RDW 15.7 H Seg Neutrophils % 84.6 H Lymphocytes % 6.7 L Absolute Lymphocytes 0.4 L Sodium 133.7 L Carbon Dioxide 19 L BUN 33 H Creatinine 1.96 H Est GFR ( Amer) 44 L Est GFR (Non-Af Amer) 36 L Urine Ascorbic Acid 40 H - EKG Interpretation by Me Additional EKG results interpreted by me: 08/23/17 17:28 EKG shows sinus tachycardia at a rate of 100, left axis deviation, normal intervals, concerning T-wave inversions in 1, aVL, V2 through the [address] segment depressions, no ST segment elevations per my interpretation. (MARGA POSEY) Discharge <ELINA CAMPBELL - Last Filed: 08/23/17 19:31> - Discharge Admitting Provider: Hospitalist - Dr. Arias Unit Admitted: Telemetry <MARGA POSEY - Last Filed: 08/23/17 19:32> - Discharge Clinical Impression: Gram-negative bacteremia Decubitus ulcer, buttock Qualifiers: Pressure ulcer stage: unstageable Laterality: right Qualified Code(s): L89.310 - Pressure ulcer of right buttock, unstageable Decubitus ulcer Qualifiers: Pressure ulcer location: buttock Pressure ulcer stage: unspecified pressure ulcer stage Laterality: left Qualified Code(s): L89.329 - Pressure ulcer of left buttock, unspecified stage Condition: Fair Disposition: ADMITTED INPATIENT Scribe Attestation: 08/23/17 19:32 I personally performed the services described in the documentation, reviewed and edited the documentation which was dictated to the scribe in my presence, and it accurately records my words and actions. (MARGA POSEY) Scribe Documentation - Scribe Written by Scribe:: Jerome Best, 08/23/2017 16:53 acting as scribe for :: Selene <ELINA CAMPBELL - Last Filed: 08/23/17 19:31>
[2017-08-23 17:31] LABS: ABSOLUTE LYMPHOCYTES (AUTO) 0.4 10^3/uL (0.5-4.7); ABSOLUTE MONOCYTES (AUTO) 0.4 10^3/uL (0.1-1.4); ABSOLUTE NEUT (AUTO) 4.7 10^3/uL (1.7-8.2); BASOPHILS % (AUTO) 0.7 % (0-2); EOSINOPHILS % (AUTO) 0.6 % (0-6); HEMATOCRIT 27.8 % (37.9-51.0); HEMOGLOBIN 9.4 g/dL (13.5-17.0); HGB HCT DIFFERENCE 0.4; LYMPHOCYTES % (AUTO) 6.7 % (13-45); MEAN CORPUSCULAR HEMOGLOBIN 26.7 pg (27.0-33.4); MEAN CORPUSCULAR HGB CONC 33.8 g/dL (32.0-36.0); MEAN CORPUSCULAR VOLUME 79 fl (80-97); MONOCYTES % (AUTO) 7.4 % (3-13); RED BLOOD COUNT 3.52 10^6/uL (4.35-5.55); RED CELL DISTRIBUTION WIDTH 15.7 % (11.5-14.0); SEGMENTED NEUTROPHILS % (AUTO) 84.6 % (42-78); WHITE BLOOD COUNT 5.6 10^3/uL (4.0-10.5)
[2017-08-23 17:37] LABS: APPEARANCE,URINE SLIGHTLY-CLOUDY; BILIRUBIN,URINE NEGATIVE (NEGATIVE); GLUCOSE, URINE NEGATIVE (NEGATIVE); KETONES,URINE NEGATIVE (NEGATIVE); LEUKOCYTE ESTERASE,URINE NEGATIVE (NEGATIVE); NITRITE,URINE NEGATIVE (NEGATIVE); PROTEIN,URINE NEGATIVE (NEGATIVE); URINE SPECIFIC GRAVITY 1.013; UROBILINOGEN,URINE NEGATIVE mg/dL (<2.0)
[2017-08-23 17:56] LABS: ALANINE AMINOTRANSFERASE 54 U/L (21-72); ALBUMIN 3.5 g/dL (3.5-5.0); ALKALINE PHOSPHATASE 117 U/L (38-126); ANION GAP 17 (5-19); ASPARTATE AMINO TRANSFERASE 37 U/L (17-59); BILIRUBIN,DIRECT 0.4 mg/dL (0.0-0.4); BILIRUBIN,TOTAL 0.6 mg/dL (0.2-1.3); BLOOD UREA NITROGEN 33 mg/dL (7-20); CARBON DIOXIDE 19 mmol/L (22-30); CHLORIDE 98 mmol/L (98-107); CREATININE RESULT 1.96 mg/dL (0.52-1.25); GLUCOSE 91 mg/dL (75-110); POTASSIUM 4.7 mmol/L (3.6-5.0); SODIUM 133.7 mmol/L (137-145); TOTAL PROTEIN 6.5 g/dL (6.3-8.2)
[2017-08-23] MEDS ORDERED: PIPERACILLIN/TAZOBACTAM 3.375 GM VIAL IV ONE (18:20)
[2017-08-23] MEDS ORDERED: NORMAL SALINE 1000 ML 1,000 ML IV ONE (18:27)
[2017-08-23] MEDS ORDERED: VANCOMYCIN HCL INJ 1000 MG VIAL IV ONE (18:38)
[2017-08-23] MEDS ORDERED: ACETAMINOPHEN 650 MG SUPP.RECT PR PRN (18:58)
[2017-08-23] MEDS ORDERED: ONDANSETRON HCL INJ/PF 4 MG/2 ML SDV IV PRN (18:58)
[2017-08-23] MEDS ORDERED: ACETAMINOPHEN 325 MG TABLET PO PRN (18:58)
[2017-08-23] MEDS ORDERED: ALPRAZOLAM 0.5 MG TABLET PO PRN (19:27)
--- NOTE | 2017-08-23 19:31 | PDOC H&P ---
History of Present Illness Admission Date/PCP: 08/23/2017 Patient complains of: bilateral infected ulcers to both buttocks History of Present Illness: RANDI BAEZA is a 52 year old male with history of hypertension bipolar disorder schizophrenia who presented to dementia emergency room with bilateral infected ulcers of the buttocks, that had formed about 5 weeks ago when the patient overdosed on oxycodone that he bought off the street and was unresponsive on the chair for about 2 days. The patient was seen 2 days ago in the emergency room during which is sharp excision debridement was done by surgery and he was discharged home without antibiotics. He presents today increased pain, fever, and increased discharge from the right buttock ulcer. I was noted that blood cultures from 2 days ago was positive for gram-negative rods. In the emergency room the patient had a fever of 102 and admitted to having had nausea vomiting with diarrhea that resolved about 2 days ago. The discharge from the Botox also is foul-smelling. He denies chest pain, shortness of breath, abdominal pain, headache, focal neurologic deficits. Past Medical History Cardiac Medical History: Reports: Hypertension Psychiatric Medical History: Reports: Bipolar Disorder Past Surgical History Past Surgical History: Reports: Orthopedic Surgery Social History Information Source: Parent, POA - Power of Aeronautical Engineer, Emergency Med Personnel Lives with: Parents Smoking Status: Never Smoker Frequency of Alcohol Use: None Hx Recreational Drug Use: No Hx Prescription Drug Abuse: Yes - Oxycodone - Advance Directive Surrogate healthcare decision maker:: NONE Family History Family History: None, Reviewed & Not Pertinent Parental Family History Reviewed: Yes Children Family History Reviewed: NA Sibling(s) Family History Reviewed.: NA Medication/Allergy Home Medications: Alprazolam [Xanax] 1 mg PO Q8HP PRN 08/23/17 Amlodipine Besylate 5 mg PO DAILY 08/23/17 Atorvastatin Calcium [Lipitor 20 mg Tablet] 20 mg PO QHS 08/23/17 Lisinopril 20 mg PO DAILY 08/23/17 Metoprolol Tartrate [Lopressor 50 mg Tablet] 50 mg PO Q12H 08/23/17 Oxycodone HCl [Oxy-Ir 5 mg Tablet] 15 mg PO Q4HP PRN 08/23/17 Quetiapine Fumarate [Quetiapine Fumarate ER] 800 mg PO DAILY 08/23/17 Allergies/Adverse Reactions: No Known Allergies Allergy (Verified 08/21/17 12:00) Review of Systems Constitutional: PRESENT: as per HPI, chills, fever(s), weight loss Cardiovascular: PRESENT: as per HPI Gastrointestinal: PRESENT: as per HPI, diarrhea, nausea, vomiting Physical Exam Vital Signs: Temp Pulse Resp BP Pulse Ox 98.3 F 110 H 17 121/78 100 08/23/17 15:00 08/23/17 15:00 08/23/17 15:00 08/23/17 15:00 08/23/17 15:00 Intake & Output 08/22/17 08/23/17 08/24/17 06:59 06:59 06:59 Weight 92.533 kg General appearance: PRESENT: no acute distress, disheveled, obese Head exam: PRESENT: atraumatic, normocephalic Eye exam: PRESENT: conjunctiva pink, EOMI, PERRLA Mouth exam: PRESENT: moist Teeth exam: PRESENT: poor dentation Neck exam: ABSENT: carotid bruit, full ROM, JVD, lymphadenopathy, meningismus, tenderness, thyromegaly, tracheal deviation, tracheostomy, other Respiratory exam: PRESENT: clear to auscultation wilder, unlabored Cardiovascular exam: PRESENT: RRR, +S1, +S2 Pulses: PRESENT: normal carotid pulses, normal radial pulses, normal dorsalis pedis pul Vascular exam: PRESENT: normal capillary refill GI/Abdominal exam: PRESENT: normal bowel sounds, soft. ABSENT: ascites, diminished bowel sounds, distended, firm, guarding, hernia, hyperactive bowel sounds, hypoactive bowel sounds, mass, Millard's sign, organolmegaly, rebound, rigid, tenderness, other Rectal exam: PRESENT: deferred Neurological exam: PRESENT: alert, awake, oriented to person, oriented to place , oriented to time, oriented to situation, reflexes normal, CN II-XII grossly intact Skin exam: PRESENT: other - 2 large buttocks ulcers, right with foul smelling discharge Results Laboratory Results: 08/23/17 15:45 08/23/17 15:45 08/23/17 08/23/17 08/23/17 15:45 15:45 17:00 WBC 5.6 RBC 3.52 L Hgb 9.4 L Hct 27.8 L MCV 79 L MCH 26.7 L MCHC 33.8 RDW 15.7 H Plt Count 206 Seg Neutrophils % 84.6 H Lymphocytes % 6.7 L Monocytes % 7.4 Eosinophils % 0.6 Basophils % 0.7 Absolute Neutrophils 4.7 Absolute Lymphocytes 0.4 L Absolute Monocytes 0.4 Absolute Eosinophils 0.0 Absolute Basophils 0.0 Sodium 133.7 L Potassium 4.7 Chloride 98 Carbon Dioxide 19 L Anion Gap 17 BUN 33 H Creatinine 1.96 H Est GFR ( Amer) 44 L Est GFR (Non-Af Amer) 36 L Glucose 91 Lactic Acid Calcium 9.0 Total Bilirubin 0.6 AST 37 ALT 54 Alkaline Phosphatase 117 Total Protein 6.5 Albumin 3.5 Urine Color YELLOW Urine Appearance SLIGHTLY-CLOUDY Urine pH 5.0 Ur Specific [place] 1.013 Urine Protein NEGATIVE Urine Glucose (UA) NEGATIVE Urine Ketones NEGATIVE Urine Blood NEGATIVE Urine Nitrite NEGATIVE Ur Leukocyte Esterase NEGATIVE Urine WBC (Auto) 2 Urine RBC (Auto) 0 08/23/17 18:18 WBC RBC Hgb Hct MCV MCH MCHC RDW Plt Count Seg Neutrophils % Lymphocytes % Monocytes % Eosinophils % Basophils % Absolute Neutrophils Absolute Lymphocytes Absolute Monocytes Absolute Eosinophils Absolute Basophils Sodium Potassium Chloride Carbon Dioxide Anion Gap BUN Creatinine Est GFR ( Amer) Est GFR (Non-Af Amer) Glucose Lactic Acid 0.8 Calcium Total Bilirubin AST ALT Alkaline Phosphatase Total Protein Albumin Urine Color Urine Appearance Urine pH Ur Specific [place] Urine Protein Urine Glucose (UA) Urine Ketones Urine Blood Urine Nitrite Ur Leukocyte Esterase Urine WBC (Auto) Urine RBC (Auto) EKG Comments: EKG with sinus tachycardia at 100 T-wave inversions in 1, aVL, V2 through V6 with minimal ST segment depression, no ST segment elevation, by my personal review Assessment & Plan - Diagnosis (1) Decubitus ulcer, buttock Qualifiers: Pressure ulcer stage: unstageable Laterality: right Qualified Code(s): L89.310 - Pressure ulcer of right buttock, unstageable Is this a current diagnosis for this admission?: Yes Plan: Bilateral infected buttock ulcers due to prolonged mobility as a result of OxyContin overdose 5 weeks ago Status post sharp excision debridement 2 days ago Will require further debridement: Surgery consulted Continue empiric IV vancomycin and Zosyn and follow cultures Pain management as needed (2) Gram-negative bacteremia Plan: Grams negative bacteremia noted from blood culture of 08/21/2017 Repeat blood cultures ordered Continue empiric IV Zosyn and vancomycin per pharmacy protocol as ordered (3) LEXII (acute kidney injury) Is this a current diagnosis for this admission?: Yes Plan: Acute kidney injury due to above, associated with metabolic acidosis. BUN 33, creatinine 1.96, CO2 19. Continue IV fluids and follow renal function (4) HTN (hypertension) Qualifiers: Hypertension type: essential hypertension Qualified Code(s): I10 - Essential (primary) hypertension Is this a current diagnosis for this admission?: Yes Plan: Home lisinopril held. Continue home metoprolol with holding parameters - Time Time Spent: 50 to 70 Minutes Medications reviewed and adjusted accordingly: Yes Anticipated discharge: Home with Homehealth - Inpatient Certification Medical Necessity: Failure to Improve With Outpatient Therapy, Need for IV Antibiotics
[2017-08-23] MEDS ORDERED: HYDROMORPHONE HCL INJ/PF 2 MG/ML AMPULE ONE (19:32)
[2017-08-23] MEDS ORDERED: FENTANYL CITRATE INJ/PF 100 MCG/2 ML AMPUL ONE ×2 (19:32)
[2017-08-23] MEDS ORDERED: MIDAZOLAM 2 MG/2 ML INJ ONE (19:33)
[2017-08-23] MEDS ORDERED: PROPOFOL INJ 200 MG/20 ML VIAL IV ONE (19:33)
[2017-08-23] MEDS ORDERED: LIDOCAINE 0.5% INJ-PF (5 MG/ML) 50 ML SDV ONE (20:00)
[2017-08-23] MEDS ORDERED: KETAMINE HCL INJ 500 MG/10 ML VIAL ONE (20:11)
[2017-08-23] MEDS ORDERED: LIDOCAINE 0.5% INJ-PF (5 MG/ML) 50 ML SDV INJ ONE (20:37)
[2017-08-23] MEDS ORDERED: METOPROLOL TARTRATE 50 MG TABLET PO SCH (22:00)
[2017-08-23] MEDS ORDERED: ATORVASTATIN CALCIUM 20 MG TABLET PO SCH (22:00)
[2017-08-23] MEDS ORDERED: PIPERACILLIN/TAZOBACTAM 3.375 GM VIAL IV PRN (22:28)
[2017-08-24] MEDS ORDERED: PIPERACILLIN SODIUM/TAZOBACTAM 4.5 GM in NORMAL SALINE 100 ML IV SCH ×2
[2017-08-24] MEDS ORDERED: PIPERACILLIN SODIUM/TAZOBACTAM 3.375 GM in NORMAL SALINE 100 ML IV SCH ×2
[2017-08-24] MEDS: KETOROLAC TROMETHAMINE INJ/PF 30 MG/1 ML SDV IV SCH ×3 (01:07→13:47)
[2017-08-24] MEDS: PIPERACILLIN SODIUM/TAZOBACTAM 3.375 GM in NORMAL SALINE 100 ML IV SCH ×4 (01:10→17:47)
[2017-08-24] MEDS: OXYCODONE-ACETAMINOPHEN 5-325 MG TABLET PO PRN ×4 (01:16→19:51)
[2017-08-24] MEDS: NORMAL SALINE 1000 ML 1,000 ML IV PRN ×3 (03:27→13:48)
[2017-08-24] MEDS: LANSOPRAZOLE 30 MG TAB.RAP.DR PO SCH ×2 (05:45→17:48)
[2017-08-24] MEDS ORDERED: KETOROLAC TROMETHAMINE INJ/PF 30 MG/1 ML SDV IV SCH (06:00)
[2017-08-24 06:47] LABS: ABSOLUTE EOSINOPHILS # (AUTO) 0.1 10^3/uL (0.0-0.6); ABSOLUTE LYMPHOCYTES (AUTO) 0.2 10^3/uL (0.5-4.7); ABSOLUTE MONOCYTES (AUTO) 0.1 10^3/uL (0.1-1.4); ABSOLUTE NEUT (AUTO) 2.4 10^3/uL (1.7-8.2); BASOPHILS % (AUTO) 0.6 % (0-2); EOSINOPHILS % (AUTO) 2.6 % (0-6); HEMATOCRIT 22.5 % (37.9-51.0); HGB HCT DIFFERENCE 0.6; MEAN CORPUSCULAR HEMOGLOBIN 27.3 pg (27.0-33.4); MEAN CORPUSCULAR HGB CONC 34.3 g/dL (32.0-36.0); MEAN CORPUSCULAR VOLUME 79 fl (80-97); MONOCYTES % (AUTO) 5.1 % (3-13); RED BLOOD COUNT 2.84 10^6/uL (4.35-5.55); RED CELL DISTRIBUTION WIDTH 15.8 % (11.5-14.0); SEGMENTED NEUTROPHILS % (AUTO) 83.7 % (42-78)
[2017-08-24 06:52] LABS: ALANINE AMINOTRANSFERASE 40 U/L (21-72); ALBUMIN 2.6 g/dL (3.5-5.0); ALKALINE PHOSPHATASE 81 U/L (38-126); ANION GAP 13 (5-19); ASPARTATE AMINO TRANSFERASE 34 U/L (17-59); BILIRUBIN,DIRECT 0.4 mg/dL (0.0-0.4); BILIRUBIN,TOTAL 0.5 mg/dL (0.2-1.3); BLOOD UREA NITROGEN 34 mg/dL (7-20); CALCIUM 8.1 mg/dL (8.4-10.2); CARBON DIOXIDE 20 mmol/L (22-30); CHLORIDE 103 mmol/L (98-107); CREATININE RESULT 2.08 mg/dL (0.52-1.25); GLUCOSE 136 mg/dL (75-110); SODIUM 135.8 mmol/L (137-145)
[2017-08-24 06:54] LABS: WHITE BLOOD COUNT 2.9 10^3/uL (4.0-10.5)
[2017-08-24 06:55] LABS: HEMOGLOBIN 7.7 g/dL (13.5-17.0)
[2017-08-24] MEDS ORDERED: VANCOMYCIN HCL 0 MG in DEXTROSE 5%-WATER 250 ML IV NR (08:45)
[2017-08-24] MEDS ORDERED: NORMAL SALINE 1000 ML 1,000 ML IV ONE ×2 (09:00→12:30)
[2017-08-24] MEDS: DOCUSATE SODIUM 100 MG CAPSULE PO SCH ×2 (09:40→17:33)
[2017-08-24 09:53] LABS: HEMATOCRIT 21.5 % (37.9-51.0); HGB HCT DIFFERENCE 0.1; MEAN CORPUSCULAR HEMOGLOBIN 26.6 pg (27.0-33.4); MEAN CORPUSCULAR HGB CONC 33.5 g/dL (32.0-36.0); MEAN CORPUSCULAR VOLUME 79 fl (80-97); RED BLOOD COUNT 2.71 10^6/uL (4.35-5.55); RED CELL DISTRIBUTION WIDTH 15.7 % (11.5-14.0); WHITE BLOOD COUNT 2.7 10^3/uL (4.0-10.5)
[2017-08-24 09:56] LABS: HEMOGLOBIN 7.2 g/dL (13.5-17.0)
[2017-08-24] MEDS ORDERED: AMLODIPINE BESYLATE 5 MG TABLET PO SCH (10:00)
[2017-08-24] MEDS ORDERED: VANCOMYCIN HCL 1,500 MG in DEXTROSE 5%-WATER 250 ML IV SCH (10:00)
[2017-08-24] MEDS ORDERED: ENOXAPARIN SODIUM INJ 40 MG/0.4 ML DISP.SYRIN SUBCUT SCH (10:00)
[2017-08-24] MEDS ORDERED: QUETIAPINE FUMARATE 100 MG TABLET PO SCH (10:00)
--- NOTE | 2017-08-24 10:13 | PDOC PROGRESS REPORT ---
Subjective Progress Note for:: 08/24/17 Subjective:: No complaints. Alert no acute distress. Physical Exam Vital Signs: Temp Pulse Resp BP Pulse Ox 98.3 F 74 18 82/49 L 100 08/24/17 08:05 08/24/17 08:26 08/24/17 08:05 08/24/17 08:26 08/24/17 08:26 Intake & Output 08/23/17 08/24/17 08/25/17 06:59 06:59 06:59 Intake Total 4740 Output Total 3310 Balance 1430 Weight 93.3 kg General appearance: PRESENT: no acute distress, cooperative Extremities exam: PRESENT: other - Bilateral hip large open wounds. Right side has no purulent drainage but it has extensive amount of fibrinous exudate. Left side has purulent drainage with exudate. Results Laboratory Results: 08/24/17 09:34 08/24/17 05:53 08/24/17 08/24/17 08/24/17 05:53 05:53 05:53 WBC 2.9 L D RBC 2.84 L Hgb 7.7 L Hct 22.5 L MCV 79 L MCH 27.3 MCHC 34.3 RDW 15.8 H Plt Count 133 L Seg Neutrophils % 83.7 H Lymphocytes % 8.0 L Monocytes % 5.1 Eosinophils % 2.6 Basophils % 0.6 Absolute Neutrophils 2.4 Absolute Lymphocytes 0.2 L Absolute Monocytes 0.1 Absolute Eosinophils 0.1 Absolute Basophils 0.0 Sodium 135.8 L Potassium 4.0 Chloride 103 Carbon Dioxide 20 L Anion Gap 13 BUN 34 H Creatinine 2.08 H Est GFR ( Amer) 41 L Est GFR (Non-Af Amer) 34 L Glucose 136 H Lactic Acid 1.7 Calcium 8.1 L Total Bilirubin 0.5 AST 34 ALT 40 Alkaline Phosphatase 81 Total Protein 5.0 L Albumin 2.6 L 08/24/17 08/24/17 09:34 09:34 WBC 2.7 L RBC 2.71 L Hgb 7.2 L Hct 21.5 L MCV 79 L MCH 26.6 L MCHC 33.5 RDW 15.7 H Plt Count 127 L Seg Neutrophils % Lymphocytes % Monocytes % Eosinophils % Basophils % Absolute Neutrophils Absolute Lymphocytes Absolute Monocytes Absolute Eosinophils Absolute Basophils Sodium Potassium Chloride Carbon Dioxide Anion Gap BUN Creatinine Est GFR ( Amer) Est GFR (Non-Af Amer) Glucose Lactic Acid 0.9 Calcium Total Bilirubin AST ALT Alkaline Phosphatase Total Protein Albumin 08/23/17 08/23/17 19:55 19:55 Creatine Kinase 31 L Troponin I < 0.012 Assessment & Plan - Diagnosis (1) Bilateral hip decubitus ulcers Is this a current diagnosis for this admission?: Yes Plan: With evidence of sepsis this morning looking much better after fluid resuscitation. Patient's antibiotics have been broadened. Patient would benefit from a bilateral hip wound debridement. Will check MRI of the bilateral hips to exclude osteo myelitis. I have discussed with the patient risk and benefits of the debridement including risk of bleeding infection need for further surgery.
[2017-08-24] MEDS ORDERED: DEXTROSE 50%-WATER 25 GM/50 ML DISP.SYRIN IV PRN ×2 (10:14)
[2017-08-24] MEDS ORDERED: GLUCAGON,HUMAN RECOMB 1 MG INJ SUBCUT PRN (10:14)
[2017-08-24] MEDS ORDERED: DEXTROSE 40% GEL 15 GM TUBE PO PRN ×2 (10:14)
--- NOTE | 2017-08-24 10:25 | OPERATIVE REPORT E ---
Operative Report NAME: RANDI BAEZA : 1965 AGE: 52Y DATE OF SURGERY: 08/23/2017 ROOM: 404 PREOPERATIVE DIAGNOSIS: Abscess of the left hip. Sacral decubitus of the left hip with minimal necrotic tissue. Patient also with sepsis. POSTOPERATIVE DIAGNOSIS: OPERATION: Wide debridement and evacuation of abscesses along the hip. SURGEON: NATASHA COREY M.D. ANESTHESIA: Local, MAC. INDICATION: This is a 53-year-old male who apparently had an overdose of pain medicine about 5 weeks ago and was at [facility] being treated for this. After discharge from the hospital, the patient developed fever a week ago, brought to the emergency room 2 days ago, where both hip decubitus ulcer were debrided in the emergency room and was sent home. However, patient continued to have fever and chills, and blood culture apparently by that time was positive for gram-negative rods. The patient had obvious necrotic fatty tissue abscess around the debrided site on the left hip. DESCRIPTION OF PROCEDURE: The patient was placed in the left lateral position, left side down and right side up.The patient given IV sedation. After adequate IV sedation, the left hip was then prepped and draped in the usual sterile fashion. Appropriate timeout was called. Next, the ulcer site preoperatively measured about 10 x 9 cm. On squeezing on the side, there is some purulent material noted on at least 2 areas on the medial upper side. This was then opened up, and more purulent material was noted. The purulent material extended to the suerior area. Also further undermining on the medial aspect also showed some purulent material. This also extended towards the caudal area and the local anesthesia infiltrated on the skin and extended the incision to about 2.5 cm. The same thing was done on the upper part after local anesthesia was infiltrated. Now further debridement of the fatty necrotic tissue on the surface also was performed using sharp scissor dissection. Some of the tunneling on the medial aspect also was done by dividing the fatty tissue towards the fascia. The fascia itself does not look like it is involved. The fatty tissue is debrided all the way down into the fascia. The area was subsequently pulse lavaged with at least 3 liters of saline and the hemostasis obtained with electrocautery. The area was subsequently packed with 3.5 inch iodoform gauze. No other areas of pus noted after completion of the procedure. Sterile dressings placed over the operative site. The patient tolerated the procedure well, brought to the recovery room in satisfactory condition. Needle, instrument, and sponge counts were all correct. Estimated blood loss about 20 mL. DICTATING PHYSICIAN: NATASHA COREY M.D. [id number] PHY#: [id number] ID: [id number] JOB#: [id number] ACCT: [id number] cc:NATASHA COREY M.D. > MTDD
[2017-08-24] MEDS ORDERED: NORMAL SALINE 250 ML IV PRN ×2 (11:35)
--- NOTE | 2017-08-24 12:05 | PDOC PROGRESS REPORT ---
Subjective Progress Note for:: 08/24/17 Subjective:: Day 1, follow-up visit for infected bilateral ulcers of the buttocks. Shyam resendiz is a 52-year-old male with history of hypertension bipolar disorder schizophrenia who presented to the emergency room with bilateral infected ulcers of the buttocks that had formed about 5 weeks ago when the patient overdosed on oxycodone that he bought off the street and was unresponsive on the couch for about 2 days. The patient had sharp excision debridement of his ulcers on 08/21/[address] Daniel and was discharged home. He was readmitted on 08/23/2017 with fever, and blood cultures from the previous ER visit was positive for gram-negative rods. He underwent debridement of his right buttock ulcer on 08/23/2017, and has been on broad spectrum antibiotics. Overnight events noted. This morning patient has been hypotensive and has significant drainage from both ulcers. He complains of feeling generally weak. He denies chest pain shortness of breath nausea vomiting diarrhea, headache, seizures, any focal neurologic deficits. He has remained afebrile Physical Exam Vital Signs: Temp Pulse Resp BP Pulse Ox 98.3 F 74 18 82/49 L 100 08/24/17 08:05 08/24/17 08:26 08/24/17 08:05 08/24/17 08:26 08/24/17 08:26 Intake & Output 08/23/17 08/24/17 08/25/17 06:59 06:59 06:59 Intake Total 4740 Output Total 3310 Balance 1430 Weight 93.3 kg General appearance: PRESENT: disheveled, mild distress, thin Head exam: PRESENT: atraumatic, normocephalic Eye exam: PRESENT: conjunctiva pale, EOMI, PERRLA Respiratory exam: PRESENT: clear to auscultation wilder, symmetrical. ABSENT: accessory muscle use, chest wall tenderness, crackles, decreased breath sounds, prolonged expiratory phas, rales, retraction, rhonchi, stridor, tachypnea, unlabored, wheezes, other Cardiovascular exam: PRESENT: RRR, +S1, +S2. ABSENT: bradycardia, clicks, diastolic murmur, gallop, irregular rhythm, rubs, systolic murmur, tachycardia, other GI/Abdominal exam: PRESENT: normal bowel sounds, soft Extremities exam: PRESENT: pedal edema Neurological exam: PRESENT: alert, awake, oriented to person, oriented to place , oriented to time, oriented to situation Skin exam: PRESENT: other - Dressing over the right buttocks ulcer is soaked with serosanguineous drainage, the left buttock ulcer has a purulent, serosanguineous drainage Results Laboratory Results: 08/24/17 05:53 08/24/17 05:53 08/24/17 08/24/17 08/24/17 05:53 05:53 05:53 WBC 2.9 L D RBC 2.84 L Hgb 7.7 L Hct 22.5 L MCV 79 L MCH 27.3 MCHC 34.3 RDW 15.8 H Plt Count 133 L Seg Neutrophils % 83.7 H Lymphocytes % 8.0 L Monocytes % 5.1 Eosinophils % 2.6 Basophils % 0.6 Absolute Neutrophils 2.4 Absolute Lymphocytes 0.2 L Absolute Monocytes 0.1 Absolute Eosinophils 0.1 Absolute Basophils 0.0 Sodium 135.8 L Potassium 4.0 Chloride 103 Carbon Dioxide 20 L Anion Gap 13 BUN 34 H Creatinine 2.08 H Est GFR ( Amer) 41 L Est GFR (Non-Af Amer) 34 L Glucose 136 H Lactic Acid 1.7 Calcium 8.1 L Total Bilirubin 0.5 AST 34 ALT 40 Alkaline Phosphatase 81 Total Protein 5.0 L Albumin 2.6 L 08/23/17 08/23/17 19:55 19:55 Creatine Kinase 31 L Troponin I < 0.012 08/23/17 08/23/17 08/23/17 15:45 15:45 18:18 WBC 5.6 Hgb 9.4 L Plt Count 206 Creatinine 1.96 H Lactic Acid 0.8 Albumin 3.5 08/24/17 08/24/17 08/24/17 05:53 05:53 05:53 WBC 2.9 L D Hgb 7.7 L Plt Count 133 L Creatinine 2.08 H Lactic Acid 1.7 Albumin 2.6 L Assessment & Plan - Diagnosis (1) Septic shock Is this a current diagnosis for this admission?: No Plan: Systolic blood pressure in the 80s even after 1 L of IV fluid resuscitation this morning. Lactic acid is not elevated. We will continue IV fluid boluses, as well as current broad-spectrum antibiotics. Follow cultures. I consulted surgery to evaluate patient for further debridement for source control (2) Postoperative anemia due to acute blood loss Is this a current diagnosis for this admission?: No Plan: Hemoglobin is significantly lower compared to admission. This is most likely related to postoperative acute blood loss anemia. Given that patient is going for further debridement, will transfuse 1 unit of packed red blood cells and follow serial H and H (3) Decubitus ulcer, buttock Qualifiers: Pressure ulcer stage: unstageable Laterality: right Qualified Code(s): L89.310 - Pressure ulcer of right buttock, unstageable Is this a current diagnosis for this admission?: Yes Plan: Bilateral infected buttock ulcers due to prolonged mobility as a result of OxyContin overdose 5 weeks ago Status post sharp excision debridement 2 days ago, and status post debridement of the right buttock ulcer on 08/23/2017 Will require further debridement: Surgery consulted Patient will require MRI to rule out associated osteomyelitis Continue empiric IV vancomycin and Zosyn and follow cultures Pain management as needed (4) Gram-negative bacteremia Plan: Grams negative bacteremia noted from blood culture of 08/21/2017 Repeat blood cultures ordered Continue empiric IV Zosyn and vancomycin per pharmacy protocol as ordered (5) LEXII (acute kidney injury) Is this a current diagnosis for this admission?: Yes Plan: Acute kidney injury, non-oliguric, likely due to sepsis. Continue IV fluids and follow renal function (6) HTN (hypertension) Qualifiers: Hypertension type: essential hypertension Qualified Code(s): I10 - Essential (primary) hypertension Is this a current diagnosis for this admission?: Yes Plan: Given the patient's hypotension, will hold all current antihypertensive medication: Lisinopril, metoprolol, amlodipine (7) DVT prophylaxis Is this a current diagnosis for this admission?: Yes Plan: DVT prophylaxis with subcutaneous UF heparin - Time Time Spent with patient: 35 or more minutes Medications reviewed and adjusted accordingly: Yes Anticipated discharge: Home with Homehealth
--- NOTE | 2017-08-24 13:56 | RADIOLOGY REPORT (SQ) ---
EXAM DESCRIPTION: MRI PELVIS WITHOUT COMPLETED DATE/TIME: 08/24/2017 1:19 pm REASON FOR STUDY: Rule out bilateral hip osteomyelitis fever, sepsis bilateral decubitus ulcers COMPARISON: CT abdomen pelvis 07/13/2017 TECHNIQUE: Multiplanar imaging of the pelvis to include fat and fluid sensitive sequences. LIMITATIONS: None. FINDINGS: On the right side, on axial image 29 and coronal image 18, a 5 cm diameter skin defect wit h deep decubitus ulcer is present, ulcer extends down to the right posterolateral thigh muscles and g luteal muscles. There is high signal with edema in the gluteus hayes, medius and gluteus minimus m uscles on the right, fluid in the right trochanteric bursa, and edema in the obturator externus muscl e, posterior edge of the vastus lateralis muscle, and ventral edge of the biceps femoris muscle. Greyson ma is seen in muscle adjacent to the deep ulcer. On the axial fat-sat T2 weighted images there are s everal small microabscesses less than 2 cm in size in the gluteus hayes muscle on axial image 16 an d coronal images 17 and 18. On the right side, no iliopsoas bursa fluid is present. No right hip joint effusion. The right prox imal femur, ischium, and hemipelvis exhibits normal marrow signal suggesting against osteomyelitis. On the left side, a superficial decubitus ulcer measuring about 3 to 4 cm in diameter is evident on a xial image 13, there is inflammation in the adjacent fat without definite ulcer extending into the mu scle. Deep to the ulcer, there is high signal in the left gluteus hayes medius and minimus muscles . In the gluteus hayes, several small less than 2 cm intramuscular abscesses are present. There is trace fluid in the left trochanteric bursa. No definite edema in the rectus or biceps femor is on the left. No iliopsoas bursal fluid or hip joint effusion. No abnormal marrow signal of the l eft proximal femur or left hemipelvis worrisome for osteomyelitis. There is no free pelvic fluid. Obturator internus muscles intact. Normal bladder, grossly normal se maryam vesicles and prostate. This report was discussed with Dr. Mcgee IMPRESSION: No bony marrow signal abnormalities worrisome for osteomyelitis There are findings bilaterally of myositis with abnormal edema throughout muscle tissue and micro abs cesses present in the bilateral gluteal muscles Although there is fluid in the right and left trochanteric bursa, no iliopsoas bursa or hip joint flu id is seen TECHNICAL DOCUMENTATION: JOB ID: [id number] [employer]- All Rights Reserved
[2017-08-24] MEDS ORDERED: CLINDAMYCIN 900 MG/D5W RTU 50 ML IV ONE (15:00)
[2017-08-24] MEDS ORDERED: LIDOCAINE 1%/EPINEPHRINE INJ 20 ML VIAL ONE (15:16)
[2017-08-24] MEDS ORDERED: BUPIVACAINE HCL 0.25 % INJ/PF (2.5 MG/1 ML) 30 ML VIAL ONE (15:16)
[2017-08-24] MEDS ORDERED: MIDAZOLAM 2 MG/2 ML INJ ONE (15:23)
[2017-08-24] MEDS ORDERED: LIDOCAINE 2% INJ-PF (20 MG/ML) 10 ML AMPUL ONE (15:23)
[2017-08-24] MEDS ORDERED: KETAMINE HCL INJ 500 MG/10 ML VIAL ONE (15:23)
[2017-08-24] MEDS ORDERED: FENTANYL CITRATE INJ/PF 100 MCG/2 ML AMPUL ONE ×2 (15:23)
[2017-08-24] MEDS ORDERED: PROPOFOL INJ 200 MG/20 ML VIAL IV ONE (15:24)
--- NOTE | 2017-08-24 16:32 | PDOC DISCHARGE SUMMARY ---
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 Blood culture had been previously reported as gram-negative rods. I was called by microbiology this afternoon to be informed that it was actually gram variable rods most likely clostridium species. Continue empiric IV antibiotics including vancomycin, Zosyn, and clindamycin. Blood pressure is low normal with IV fluid boluses.. Patient will require extensive debridement. Surgery recommended transferring the patient to a tertiary center where there is an conservation educator, infectious disease specialist, as well as a surgeon for extensive debridement. The patient requested to be transferred preferably to [place]. I have called the transfer center and am currently arranging for the patient to be transferred once a bed is available (2) Postoperative anemia due to acute blood loss Is this a current diagnosis for this admission?: No Summary: Patient will be transfused 1 unit of packed red blood cells (3) Decubitus ulcer, buttock Is this a current diagnosis for this admission?: Yes Summary: Bilateral infected buttock ulcers due to prolonged immobility as a result of oxycodone overdose 5 weeks ago. Status post sharp excision debridement 2 days ago, status post debridement of the right buttocks ulcer on 08/23/2017. Given the MRI findings the patient would require extensive debridement. (4) Gram-negative bacteremia Summary: Initially called gram-negative bacteremia. This has been updated to Gram variable bacteria most likely clostridium. Continue broad-spectrum antibiotics and follow blood cultures (5) LEXII (acute kidney injury) Is this a current diagnosis for this admission?: Yes Summary: Continue IV fluid resuscitation (6) HTN (hypertension) Is this a current diagnosis for this admission?: Yes Summary: Antihypertensive medication on hold given sepsis (7) DVT prophylaxis Is this a current diagnosis for this admission?: Yes Summary: Subcutaneous heparin - Additional Information Resuscitation Status: Full Code Home Medications: Alprazolam [Xanax] 1 mg PO Q8HP PRN 08/23/17 Amlodipine Besylate 5 mg PO DAILY 08/23/17 Atorvastatin Calcium [Lipitor 20 mg Tablet] 20 mg PO QHS 08/23/17 Lisinopril 20 mg PO DAILY 08/23/17 Metoprolol Tartrate [Lopressor 50 mg Tablet] 50 mg PO Q12H 08/23/17 Oxycodone HCl [Oxy-Ir 5 mg Tablet] 15 mg PO Q4HP PRN 08/23/17 Quetiapine Fumarate [Quetiapine Fumarate ER] 800 mg PO DAILY 08/23/17 History of Present Illness History of Present Illness: RANDI BAEZA is a 52 year old male with history of hypertension bipolar disorder schizophrenia who presented to dementia emergency room with bilateral infected ulcers of the buttocks, that had formed about 5 weeks ago when the patient overdosed on oxycodone that he bought off the street and was unresponsive on the chair for about 2 days. The patient was seen 2 days ago in the emergency room during which is sharp excision debridement was done by surgery and he was discharged home without antibiotics. He presents today increased pain, fever, and increased discharge from the right buttock ulcer. I was noted that blood cultures from 2 days ago was positive for gram-negative rods. In the emergency room the patient had a fever of 102 and admitted to having had nausea vomiting with diarrhea that resolved about 2 days ago. The discharge from the buttocks ulcer is foul-smelling. Physical Exam Vital Signs: Temp Pulse Resp BP Pulse Ox 97.4 F 84 23 H 83/54 L 98 08/24/17 15:36 08/24/17 15:36 08/24/17 15:36 08/24/17 15:36 08/24/17 15:36 Intake & Output 08/23/17 08/24/17 08/25/17 06:59 06:59 06:59 Intake Total 4740 2370 Output Total 3310 200 Balance 1430 2170 Weight 93.3 kg General appearance: PRESENT: no acute distress, disheveled, thin Head exam: PRESENT: atraumatic, normocephalic Respiratory exam: PRESENT: decreased breath sounds, unlabored Cardiovascular exam: PRESENT: RRR, +S1, +S2 GI/Abdominal exam: PRESENT: normal bowel sounds, soft Rectal exam: PRESENT: deferred Extremities exam: PRESENT: full ROM Neurological exam: PRESENT: alert, awake, oriented to person, oriented to place , oriented to time, oriented to situation, CN II-XII grossly intact Skin exam: PRESENT: other - Dressing over the right buttock ulcer is soaked with serosanguineous drainage, the left buttock also has purulent, serosanguineous drainage Results Laboratory Results: 08/24/17 09:34 08/24/17 05:53 08/24/17 08/24/17 08/24/17 05:53 05:53 05:53 WBC 2.9 L D RBC 2.84 L Hgb 7.7 L Hct 22.5 L MCV 79 L MCH 27.3 MCHC 34.3 RDW 15.8 H Plt Count 133 L Seg Neutrophils % 83.7 H Lymphocytes % 8.0 L Monocytes % 5.1 Eosinophils % 2.6 Basophils % 0.6 Absolute Neutrophils 2.4 Absolute Lymphocytes 0.2 L Absolute Monocytes 0.1 Absolute Eosinophils 0.1 Absolute Basophils 0.0 Sodium 135.8 L Potassium 4.0 Chloride 103 Carbon Dioxide 20 L Anion Gap 13 BUN 34 H Creatinine 2.08 H Est GFR ( Amer) 41 L Est GFR (Non-Af Amer) 34 L Glucose 136 H Lactic Acid 1.7 Calcium 8.1 L Total Bilirubin 0.5 AST 34 ALT 40 Alkaline Phosphatase 81 Total Protein 5.0 L Albumin 2.6 L Blood Type Antibody Screen 08/24/17 08/24/17 08/24/17 09:34 09:34 13:15 WBC 2.7 L RBC 2.71 L Hgb 7.2 L Hct 21.5 L MCV 79 L MCH 26.6 L MCHC 33.5 RDW 15.7 H Plt Count 127 L Seg Neutrophils % Lymphocytes % Monocytes % Eosinophils % Basophils % Absolute Neutrophils Absolute Lymphocytes Absolute Monocytes Absolute Eosinophils Absolute Basophils Sodium Potassium Chloride Carbon Dioxide Anion Gap BUN Creatinine Est GFR ( Amer) Est GFR (Non-Af Amer) Glucose Lactic Acid 0.9 Calcium Total Bilirubin AST ALT Alkaline Phosphatase Total Protein Albumin Blood Type O NEGATIVE Antibody Screen NEGATIVE 08/23/17 08/23/17 19:55 19:55 Creatine Kinase 31 L Troponin I < 0.012 Impressions: Pelvis MRI 08/24/17 00:00 IMPRESSION: No bony marrow signal abnormalities worrisome for osteomyelitis There are findings bilaterally of myositis with abnormal edema throughout muscle tissue and micro abscesses present in the bilateral gluteal muscles Although there is fluid in the right and left trochanteric bursa, no iliopsoas bursa or hip joint fluid is seen Qualifiers [facility] BEING DISCHARGED WITH ANY OF THE FOLLOWING DIAGNOSIS?: No Plan Time Spent: Greater than 30 Minutes - Patient will be transferred to the [facility] under the care of Dr. Singh for further management per his preference
[2017-08-24 18:56] LABS: ABSOLUTE EOSINOPHILS # (AUTO) 0.1 10^3/uL (0.0-0.6); ABSOLUTE LYMPHOCYTES (AUTO) 0.3 10^3/uL (0.5-4.7); ABSOLUTE MONOCYTES (AUTO) 0.3 10^3/uL (0.1-1.4); ABSOLUTE NEUT (AUTO) 2.4 10^3/uL (1.7-8.2); BASOPHILS % (AUTO) 0.8 % (0-2); EOSINOPHILS % (AUTO) 4.4 % (0-6); HEMATOCRIT 24.1 % (37.9-51.0); HEMOGLOBIN 8.1 g/dL (13.5-17.0); HGB HCT DIFFERENCE 0.2; MEAN CORPUSCULAR HEMOGLOBIN 27.3 pg (27.0-33.4); MEAN CORPUSCULAR HGB CONC 33.7 g/dL (32.0-36.0); MEAN CORPUSCULAR VOLUME 81 fl (80-97); MONOCYTES % (AUTO) 8.6 % (3-13); RED BLOOD COUNT 2.98 10^6/uL (4.35-5.55); RED CELL DISTRIBUTION WIDTH 16.4 % (11.5-14.0); SEGMENTED NEUTROPHILS % (AUTO) 76.2 % (42-78); WHITE BLOOD COUNT 3.1 10^3/uL (4.0-10.5)
[2017-08-24 19:38] VITALS: BP 111/66
[2017-08-24] MEDS ORDERED: CLINDAMYCIN 900 MG/D5W RTU 50 ML IV SCH (22:00)
== END 2017-08-24 20:55 | disposition short-term general hospital (02) | DRG 871 ==
LOC: ER 14:42 → EH 18:51 → 4N 22:05 → ICU 08-24 12:43
PROVIDERS: ADMIT Family Medicine; ATTEND Family Medicine
PROC: 0JD93ZZ Extraction of Buttock Subcutaneous Tissue and Fascia, Percutaneous Approach (ICD-10-PCS; principal; 2017-08-23 20:30)
PROC: 30233N1 Transfusion of Nonautologous Red Blood Cells into Peripheral Vein, Percutaneous Approach (ICD-10-PCS; 2017-08-24)
DX: A41.9 Sepsis, unspecified organism (principal); R65.21 Severe sepsis with septic shock; A48.0 Gas gangrene; D62 Acute posthemorrhagic anemia; N17.9 Acute kidney failure, unspecified; I10 Essential (primary) hypertension; F31.9 Bipolar disorder, unspecified; F20.9 Schizophrenia, unspecified; F03.90 Unspecified dementia, unspecified severity, without behavioral disturbance, psychotic disturbance, mood disturbance, and anxiety; L89.310 Pressure ulcer of right buttock, unstageable; L89.329 Pressure ulcer of left buttock, unspecified stage; R00.0 Tachycardia, unspecified; Z79.899 Other long term (current) drug therapy
CPT/HCPCS: 300; 36415; 36430; 72195; 80053; 81001; 82550; 83605; 84484; 85025; 85027; 86850; 86900; 86901; 86920; 87040; 87070; 87075; 87077; 87186; 87205; 96374; 99283; 99284; J1170; J1885; J2250; J2543; J2704; J3010; J3370; J3490; J7030; J7060; P9016

== ENCOUNTER → 2017-11-14 | Outpatient (CLI) | payer MEDICARE, MEDICAID ==
[~2017-11-14] MED LIST changes: +DIAZEPAM 5 MG TABLET ONE; -ROCURONIUM BROMIDE INJ 50 MG/5 ML VIAL IV ONE
--- NOTE | 2017-11-14 13:47 | RADIOLOGY REPORT (SQ) ---
EXAM DESCRIPTION: MRI PELVIS COMBO COMPLETED DATE/TIME: 11/14/2017 1:04 pm REASON FOR STUDY: DECUBTITUS ULCER OF HIP STAGE 4 (L89.204) L89.204 PRESSURE ULCER OF UNSPECIFIED H IP, STAGE 4 COMPARISON: 08/24/2017. TECHNIQUE: Multiplanar imaging of the pelvis to include T1-weighted, postcontrast T1-weighted, and T 2-weighted images. CONTRAST TYPE AND DOSE: 20 mL Prohance. RENAL FUNCTION: GFR 57 LIMITATIONS: None. FINDINGS: BONE MARROW: No marrow signal alteration. Specifically no marrow replacement or marrow ed john. No evidence for osteomyelitis. No cortical break through. SOFT TISSUES: Prominent bilateral decubitus deep ulcers. The left is slightly higher relative to the right. Each ulcer tracks into the deep tissues overlying the femurs but without any clear associate d marrow edema, as above. Regional hyperintense T2 thickening and scar with associated enhancement, healing with presumed granulation tissue on the right. Left decubitus is better delineated relative to prior study, also with thickening and presumed granulation tissue. This tracks into the left glut eal musculature. No evidence of drainable fluid collection, however. OTHER: No other significant finding. IMPRESSION: Bilateral deep decubitus ulcers with soft tissue thickening and scar but no drainable ab scess or associated osteomyelitis suggested. TECHNICAL DOCUMENTATION: JOB ID: [id number] [employer]- All Rights Reserved
== END ==
LOC: RAD 10:29
PROVIDERS: ATTEND Surgery
DX: L89.224 Pressure ulcer of left hip, stage 4 (principal); L89.214 Pressure ulcer of right hip, stage 4
CPT/HCPCS: 82565; 72197; A9576; A9270

== ENCOUNTER → 2018-12-20 | Day surgery (SDC) | payer MEDICARE, MEDICAID ==
[~2018-12-20] MED LIST changes: +BUPIVACAINE HCL 0.5 % INJ/PF 30 ML SDV ONE; -DIAZEPAM 5 MG TABLET ONE; +LIDOCAINE 1% INJ-PF (10 MG/ML) 30 ML SDV ONE
--- NOTE | 2018-12-20 09:40 | Operative Report ---
PREOPERATIVE DIAGNOSIS: Spondylolisis without myopathy or radiculopathy M47.818// Lumbar Sacral Spondylolisis without myopathy or radiculopathy M47.817 POSTOPERATIVE DIAGNOSIS:Spondylolisis without myopathy or radiculopathy M47.818// Lumbar Sacral Spondylolisis without myopathy or radiculopathy M47.817 PROCEDURE: 1. Radiofrequency Ablation of bilateral L5 dorsal Ramus 2. Sacroiliac Joint Ablation - Lateral Branches of bilateral S1, S2, S3 DATE OF PROCEDURE: December 20, 2018 ANESTHESIA: Local COMPLICATIONS: None CONSENT: A full description of the procedure was provided including benefits as well as possible complications. All questions were answered and informed consent was given and signed. ASA guidelines for fasting were verified prior to sed ation. PROCEDURE IN DETAIL The patient was brought into the fluoroscopy suite and carefully assisted into the prone position on the fluoroscopy table and allowed to adjust to a position of comfort. A grounding pad was placed on the right thigh. The low back and buttocks were widely prepped with a chloraprep solution, allowed to air dry and draped in standard sterile surgical fashion. Local anesthesia was provided by 12 mL of 1 % lidocaine delivered with a 25 g needle. PROCEDURE #1: Radiofrequency Ablation of Dorsal Ramus of bilateral L5. A 17g 75mm radiofrequency introducer needle was placed to the planned anatomic target, guided with intermittent fluoroscopy with a perpendicular approach, to terminally place at the bilateral sacral ala. The stylets were removed and the radiofrequency probes with a 4mm active tip were then inserted. Needle tip position of the probes were verified in the AP, oblique, and lateral views. At each site, the medial branch nerve was stimulated at 2Hz to a maximum of 1- 2volts determined to finalize safe needle and electrode placement. The patient was awake and responsive during this portion of the procedure. Each target was anesthetized with 2mL of 2 % Sensorcaine anesthesia for lesioning and then each target was lesioned at 80 degrees Celsius for 2 minutes and 30 seconds. Tissue impedences were noted to be between 250 and 500 Ohms. PROCEDURE #2: Radiofrequency Ablation of bilateral S1, S2, S3 Lateral Branches Using the AP fluoroscopic view for visualization of the lateral PSFA as defined by the pre-placed 27-gauge Quincke needles, appropriate skin starting positions were defined. Using the PSFA as a "clock-face", the positions were: S1; bilateral = 1 and 5 oclock S2; bilateral = 1 and 5 oclock S3; bilateral = 3 oclock Using fluoroscopic guidance, a 17g introducer needle was inserted sequentially onto the target positions described above until the introducer tip touched the bony surface of the sacrum. The stylet was withdrawn from the introducer and the radiofrequency probe with a 4 mm active tip was fully inserted into the introducer. A lateral view was obtained for standard reference. At each of the targets, needle placement was verified with the use of multi-planar fluoroscopy. The needle tip position was approximately 7 - 10mm lateral to the PSFA as determined by using an Epsilon ruler. At each site, the lateral branch nerve was stimulated at 2 Hz to a maximum of 1- 2 volts determined to finalize safe needle and electrode placement. The patient was awake and responsive during this portion of the procedure. Each target was anesthetized with 2 mL of 2 % Sensorcaine anesthesia for lesioning and then each target was lesioned at 80 degrees Celsius for 2 minutes and 30 seconds. Tissue impedences were noted to be between 250- 500 Ohms. At the conclusion of the lesioning the needles were removed and bandages placed over the needle placement sites and the patient returned to the supine position on a stretcher and transported to the recovery room without hemodynamic, neurologic, or allergic reactions. Fluoroscopic images were printed for hard copy recording and digitally archived. FLUOROSCOPIC INTERPRETATION: Appropriate epidurogram obtained. Appropriate lesioning of the 10 targets noted. POST PROCEDURE EVALUATION: The patient was comfortable in the recovery room. The patient is aware that pain may worsen before remitting and 4 6 weeks may be required prior to the onset of pain relief. IMPRESSION: 1. Technically successful sacral lateral branch, lumbar dorsal ramus for denervation from L5-S3 on the bilateral without complication. 2. RTC in 2 weeks. 3. Estimated Blood Loss: None 4. Fluoroscopy time: 30 seconds
== END ==
LOC: RAD 09:01
PROVIDERS: ATTEND Family Medicine
DX: M47.818 Spondylosis without myelopathy or radiculopathy, sacral and sacrococcygeal region (principal); M47.817 Spondylosis without myelopathy or radiculopathy, lumbosacral region
CPT/HCPCS: 64635; 64640 ×3; J3490 ×2

== ENCOUNTER 2020-06-24 17:16 | Emergency (ER) | payer MEDICARE, MEDICAID ==
--- NOTE | 2020-06-24 17:42 | ER Document Report ---
ED Medical Screen (RME) - General Chief Complaint: Back Pain Stated Complaint: BACK PAIN Time Seen by Provider: 06/24/20 17:37 Primary Care Provider: IGNACIA FREED DO [ACTIVE STAFF] - Follow up in 3-5 days Mode of Arrival: Ambulatory Information source: Patient Notes: 54-year-old male presents to ED for complaint of low back pain that radiates down both legs. He states he has chronic back pain for a long time. He states he was on pain medicines for a long time but they will not prescribe him anymore. He is alert oriented respirations regular nonlabored speaking in full sentences. I have discussed with him that I will give him oxycodone while he is here and I will get back x-rays and urine. He has agreed with this treatment plan. TRAVEL OUTSIDE OF THE [place] IN LAST 30 DAYS: No - HPI Onset: Other Onset/Duration: Persistent - Long-term chronic Quality of pain: Sharp Severity: Moderate Pain Level: 4 Exacerbated by: Sitting, Standing, Movement, Walking Relieved by: Denies Similar symptoms previously: Yes Recently seen / treated by doctor: Yes - Related Data Allergies/Adverse Reactions: No Known Allergies Allergy (Verified 08/21/17 12:00) Past Medical History - General Information source: Patient - Social History Cigarette use (# per day): No Frequency of alcohol use: None Drug Abuse: Marijuana Lives with: Alone Family history: Reviewed & Not Pertinent - Past Medical History Cardiac Medical History: Reports: Hx Hypertension Pulmonary Medical History: Reports: None EENT Medical History: Reports: None Neurological Medical History: Reports: None Endocrine Medical History: Reports: None Renal/ Medical History: Reports: None Malignancy Medical History: Reports None GI Medical History: Reports: None Musculoskeltal Medical History: Reports Hx Musculoskeletal Deformity, Reports Hx Musculoskeletal Trauma Skin Medical History: Reports None Psychiatric Medical History: Reports: Hx Bipolar Disorder, Hx Schizophrenia Traumatic Medical History: Reports: None Infectious Medical History: Reports: None Past Surgical History: Reports: Hx Orthopedic Surgery - Immunizations Hx Diphtheria, Pertussis, Tetanus Vaccination: Yes Review of Systems - Review of Systems Constitutional: No symptoms reported EENT: No symptoms reported Cardiovascular: No symptoms reported Respiratory: No symptoms reported Gastrointestinal: No symptoms reported Genitourinary: No symptoms reported Male Genitourinary: No symptoms reported Musculoskeletal: Back pain - Back pain with sciatica Skin: No symptoms reported Hematologic/Lymphatic: No symptoms reported Neurological/Psychological: No symptoms reported -: Yes All other systems reviewed and negative Physical Exam - Vital signs Vitals: Temp Pulse Resp BP Pulse Ox 97.8 F 91 18 146/91 H 97 06/24/20 17:20 06/24/20 17:20 06/24/20 17:20 06/24/20 17:20 06/24/20 17:20 Interpretation: Normal - General General appearance: Appears well, Alert - HEENT Head: Normocephalic, Atraumatic Eyes: Normal Pupils: PERRL - Respiratory Respiratory status: No respiratory distress Chest status: Nontender Breath sounds: Normal Chest palpation: Normal - Cardiovascular Rhythm: Regular Heart sounds: Normal auscultation Murmur: No - Abdominal Inspection: Normal Distension: No distension Bowel sounds: Normal Tenderness: Nontender Organomegaly: No organomegaly - Back Back: Normal, Tender, Vertebra tenderness Notes: Patient has chronic back pain with sciatica. He has chronic degenerative disc disease. He also has scars to both buttocks from a previous visit when he was septic and OD'D accidentally on Xanax and laid on a couch for 2 days causing sepsis. He states he has had this pain since he was young man but now the pain is much worse. He states he is tried to get on pain management and no one will put him on pain management. I have ordered 1 oxycodone, urine and x-ray. Will discuss with him the results of the x-ray. - Extremities General upper extremity: Normal inspection, Nontender, Normal color, Normal ROM, Normal temperature General lower extremity: Normal inspection, Nontender, Normal color, Normal ROM, Normal temperature, Normal weight bearing. No: Ritika's sign - Neurological Neuro grossly intact: Yes Cognition: Normal Orientation: AAOx4 [place] Coma Scale Eye Opening: Spontaneous [place] Coma Scale Verbal: Oriented [place] Coma Scale Motor: Obeys Commands Asif Coma Scale Total: 15 Speech: Normal Motor strength normal: LUE, RUE, LLE, RLE Sensory: Normal - Psychological Associated symptoms: Normal affect, Normal mood - Skin Skin Temperature: Warm Skin Moisture: Dry Skin Color: Normal Course - Re-evaluation Re-evalutation: 06/24/20 21:57 Discussed x-ray and urine with patient. Report given to patient. Patient was treated with 1 narcotic in emergency room and told he needs to follow-up with primary care to get any further medications. Patient verbalized understanding and agreement treatment plan patient was discharged home. - Vital Signs Vital signs: Temp Pulse Resp BP Pulse Ox 97.9 F 103 H 14 133/87 H 97 06/24/20 18:53 06/24/20 18:53 06/24/20 18:53 06/24/20 18:53 06/24/20 18:53 - Laboratory Laboratory results interpreted by me: 06/24/20 18:15 Urine Protein 30 H Urine Blood SMALL H Urine Urobilinogen 2.0 H - Diagnostic Test Radiology reviewed: Image reviewed, Reports reviewed Doctor's Discharge - Discharge Clinical Impression: Chronic low back pain Qualifiers: Back pain laterality: bilateral Sciatica presence: with sciatica Sciatica laterality: bilateral sciatica Qualified Code(s): M54.42 - Lumbago with sciatica, left side Condition: Stable Disposition: HOME, SELF-CARE Additional Instructions: Chronic Pain Control Stress, inactivity, and depression make pain more severe regardless of the cause of the pain. Stress and poor physical condition can cause pain such as headaches and backache. Relaxation: Rest in a quiet place with your eyes closed for 20 minutes twice daily. Concentrate on a pleasant image, or simply "feel" your breathing. Clear your mind. Stress management: Deal with your "stressors." Either take action, or eliminate the stressor from your life. Don't let things hang over you. Accept those things you can't change. Nutrition: Eat small, balanced meals -- don't skip, don't overeat. Meals should be high-carbohydrate, low-sugar, low-fat. Exercise: Exercise helps painful conditions and eases stress. Get 30 minutes of moderate exercise, five days a week. Do an activity that does not flare your pain. Precautions: Pain which continues to disrupt daily activities, or which changes in nature, requires a medical evaluation. Pain Clinic referral is available. We do not manage chronic pain in the Emergency Department. We will try to appropriately help you through an acute flare of your chronic painful condition, but for on-going chronic pain that does not improve, you will need to see your private doctor or sign writer letterer or painter. We do not provide repeated medication management of chronic painful conditions. If you wish, we can provide the name of local pain management physicians. Chronic Back Pain Chronic back pain (pain persisting longer than three months) is a common problem. A medical evaluation can look for herniated disc, arthritis, osteoporosis, tumors, and infections. But at least half the time, there's no obvious treatable cause. Anxiety and depression tend to worsen back pain. Ibuprofen or other anti-inflammatory medicine can help. A heating pad, used for 15-20 minutes at a time, can ease pain. For this type of back pain, narcotic medicines should be avoided. Muscle relaxers are rarely helpful unless you're having spasms. Activity is important. Find an aerobic exercise program that your back can tolerate. Too much rest makes back pain worse. Specific back exercises are usually prescribed to strengthen the back and abdominal muscles. Often, a physical therapist can help. Avoid heavy lifting, working while bent over, or standing with both knees straight. Most back pain patients do better with a firm mattress. If new symptoms of a "herniated disc" (radiation of pain, numbness, or tingling down the back of the leg or weakness in the leg) occur, you should be re-examined. ORAL NARCOTIC MEDICATION: You have been given an oxycondone for pain control. This medication is a narcotic. It's best taken with food, as nausea can result if taken on an empty stomach. Don't operate machinery or drive within six hours of taking this medication. Do not combine this medicine with alcohol, or with any medication which can cause sedation (such as cold tablets or sleeping pills) unless you get permission from the physician. Narcotics tend to cause constipation. If possible, drink plenty of fluids and eat a diet high in fiber and fruits. Please be aware that prescription narcotics also have the potential for abuse. People become addicted to these medications because of the general sense of wellbeing that they induce. This feeling along with a significant reduction in tension, anxiety, and aggression provides a stimulating seductive quality to these drugs. Once your pain is under control, we encourage you to discard your unused narcotics. ICE PACKS: Apply ice packs frequently against the painful area. Many different schedules are recommended, such as "20 minutes on, 20 minutes off" or "one hour ice, two hours rest." If you need to work, you may need to go longer between ice treatments. You should plan to have the area ice packed AT LEAST one fourth of the time. The ice should be applied over the wrap, tape, or splint, or over a layer of cloth -- not directly against the skin. Some ice bags have a built-in cloth and can be put directly on the skin. WARM PACKS: After approximately two days, apply gentle heat (such as a heating pad or hot water bottle) for about 20 to 30 minutes about every two hours -- at least four times daily. Warmth and elevation will help you make a more rapid recovery, and will ease the pain considerably. Do not use HOT heat, and never apply heat for longer than 30 minutes. The continuous heat can invisibly damage skin and muscles -- even when no burn is seen on the surface. Damaged muscles can make you MORE sore. Stretching Exercises for the Back The physician has recommended that you begin stretching exercises for your back. These are often used even while the back is painful. However, you should notify the physician if the activities seem to increase your pain. PELVIC TILT: Lie flat on your back with knees bent. Tighten your stomach and buttock muscles so it flattens your lower back against the floor. Hold 10 seconds. Repeat 10 times, twice daily. KNEE RAISE: Lying on the back with knees bent, raise one knee to your chest, then the other. Hold both knees against the chest 10 seconds, then lower one knee at a time. Repeat 10 times, twice daily. PARTIAL TRUNK RAISE: Lie face down, arms at your sides. Keeping your waist on the floor, use your arms raise your chest up. Support yourself on your elbows for 30 seconds. Repeat twice daily, increasing the time to two minutes as you recover. FOLLOW-UP CARE: If you have been referred to a physician for follow-up care, call the physici ans office for an appointment as you were instructed or within the next two days. If you experience worsening or a significant change in your symptoms, notify the physician immediately or return to the Emergency Department at any time for re-evaluation. Forms: Elevated Blood Pressure Referrals: IGNACIA FREED DO [ACTIVE STAFF] - Follow up in 3-5 days
[2020-06-24] MEDS ORDERED: OXYCODONE HCL IR 5 MG TABLET PO ONE (17:43)
--- NOTE | 2020-06-24 18:28 | RADIOLOGY REPORT (SQ) ---
EXAM DESCRIPTION: L SPINE WHOLE IMAGES COMPLETED DATE/TIME: 06/24/2020 6:00 pm REASON FOR STUDY: Low back pain with sciatica down both legs COMPARISON: None. NUMBER OF VIEWS: Five views including obliques. TECHNIQUE: AP, lateral, oblique, and sacral radiographic images acquired of the lumbar spine. LIMITATIONS: None. FINDINGS: MINERALIZATION: Normal. SEGMENTATION: Normal. No transitional anatomy. ALIGNMENT: Normal. VERTEBRAE: Maintained height. No fracture or worrisome bone lesion. DISCS: Multilevel disc space narrowing with osteophytes. POSTERIOR ELEMENTS: Pedicles and facets are intact. No pars defect or posterior arch defects. Facet arthropathy is present. HARDWARE: None in the spine. PARASPINAL SOFT TISSUES: Normal. PELVIS: Intact as visualized. No fractures or worrisome bone lesions. SI joints intact. OTHER: No other significant finding. IMPRESSION: SPONDYLOSIS WITHOUT BONE LESION OR FRACTURE. TECHNICAL DOCUMENTATION: JOB ID: [id number] 2010 [employer]- All Rights Reserved Reading location - IP/workstation name: [email or web address]
[2020-06-24 18:32] LABS: APPEARANCE,URINE CLOUDY; BILIRUBIN,URINE NEGATIVE (NEGATIVE); COLOR,URINE YELLOW; GLUCOSE, URINE NEGATIVE (NEGATIVE); KETONES,URINE NEGATIVE (NEGATIVE); LEUKOCYTE ESTERASE,URINE NEGATIVE (NEGATIVE); NITRITE,URINE NEGATIVE (NEGATIVE); PROTEIN,URINE 30 mg/dL (NEGATIVE); URINE SPECIFIC GRAVITY 1.028
[2020-06-24 18:57] VITALS: BP 133/87
== END 2020-06-24 18:57 | disposition home or self-care (01) ==
LOC: ER 17:16
DX: M54.42 Lumbago with sciatica, left side (principal); I10 Essential (primary) hypertension
CPT/HCPCS: 99284; 81001; 72110; A9270